=== PATIENT | male | born 1980 | race Caucasian/White ===

== ENCOUNTER 2017-08-28 20:18 | Emergency (ER) | payer MEDICAID ==
[~2017-08-28] VITALS: Ht 185.4 cm; Wt 77.1 kg
[~2017-08-28 20:18] MED LIST: AMBIEN 10MG TAB10 MG PO; BACTRIM DS 8001 TAB PO; CLONIDINE0.1 MG PO; DICLOFENAC 50MG50 MG PO; DIPHENHYDRAMINE25 M1 PO; EFFEXOR XR150 MG PO; FLEXERIL10 MG PO; GABAPENTIN 600600 MG PO; LORTAB 5/500 501 TAB PO; NAPROSYN 500MG500 MG PO; NEXIUM40 MG PO; NORCO 325 MG-51 TAB PO; PREDNISONE 1MG.1 MG PO; PREDNISONE 20MG20 MG PO; PRILOSEC40 MG PO; PROPRANOLOL HCL20 MG PO; PROPRANOLOL HCL80 M1 PO; SEROQUEL50 MG PO; TRAMADOL 50MG T50 MG PO; XANAX 1MG TABLET1 MG PO
[2017-08-28] MEDS ORDERED: NOMEDS XX (20:28)
--- NOTE | 2017-08-28 20:53 | Emergency Room Report ---
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 Onset of symptoms date/time:08/27/1711/01/500 or onset unknown for: Treatment Prior to Arrival: [employer] Provided by: Sepsis Risk Assessment: Temp: 98.4 B/P: 130/98 MAP: 108 Pulse: 99 Resp: 20 Recent fever? N Clinical Suspician of Infection? N Mental Status: 1 - Regular (Normal Baseline) Sepsis Risk:Possible Sepsis Risk Have you (or family members/close friends) recently traveled outside the [place]? N If Yes, where/when: Have you had exposure to infectious disease within the past month? N TB? Other? Specify: Source patient, RN notes reviewed, old records Exam Limitations no limitations Comment pt reports trip injury and hit lt side of head yesterday am without loc and worked and today has dec strenght lt upper ext and vilchis with reported drooping eyelid on lt which was noted by his - he denied any visual sx and no neck pain and no speech sx or other c/o- he reports he has migraines and denied etoh or drugs Cardiac Chest Pain Chest pain indicative of cardiac No Timing/Duration this evening Severity moderate ALLERGIES Coded Allergies: latex (Intermediate, I-HIVES 07/17/16) Home Medications Active Scripts Prednisone 60 MG PO DAILY #4 TAB Prov: 05/21/17 Reported Medications No Home Medications (NO HOME MEDICATIONS) 1 EACH XX ONCE History Medical History General Angina: No AR: No Hypertension? Yes Hyperlipidemia? No CHF? No COPD? No Asthma? No Hernia? No CVA? No Seizures? No Diabetes? No UTI? No Stones? No GB Disease: No Hepatitis? No Cataracts? No Glaucoma? No MRSA? No TB? No Cancer? No Immunization Hx DT/Tetanus 1-4 YRS Flu 2011-FSN Pneumonia 12/31/2012 Surgical Hx Previous Surgery?Y RT. KNEE RECONSTRUCTION Social History Smoking Hx Smoker: Current Every Day Smoker Tobacco: Yes Type Cigarettes Packs/day < 1 Pack Alcohol Alcohol: No Drugs none Review of Systems All Other Systems Reviewed and Negative Constitutional denies fever Eyes denies drainage ENT denies: ear discharge, epistaxis, throat pain. Respiratory denies cough, denies wheezing Cardiovascular denies chest pain, denies syncope Gastrointestinal denies abdominal pain, denies diarrhea, denies vomiting Genitourinary denies: dysuria, frequency, hesitancy, hematuria. Musculoskeletal denies back pain, denies joint pain, denies neck pain Skin denies rash Psychiatric/Neurological see HPI, headache, denies seizure Physical Exam Vital Signs Vital Signs Date Time Temp Pulse Resp B/P Pulse O2 O2 Flow FiO2 Ox Delivery Rate 08/28 2021 98.4 99 20 130/98 98 - WBC >12,000 or <4,000 or 10% bands? 2 or more SIRS Criteria Met? B/P:130/98 MAP:108 Creatinine >2.0? UA output<0.5ml/kg/hr for 2 hrs? Platelet count >100,000? Lactate >2.0mmol/1? INR >1.2 or PTT > than 60 sec? Evidence of Organ Dysfunction? Provider documented clinical suspician of infection? N Sepsis Criteria Count: 2 Sepsis Risk: Possible Sepsis Risk General Appearance no apparent distress Eye Exam - bilateral eye PERRL, bilateral eye EOMI Comment dropping lt upper lid but pupils ok Ear, Nose, Throat normal ENT inspection Neck non-tender, supple Respiratory Status No: respiratory distress. Lung Sounds bilateral: lungs clear. 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 No Results/Orders Orders Procedure Date/time Status DIET-NOTHING BY MOUTH 08/[address] HEAD W/O CONTRAST 08/[address] HEAD REQ 08/28 2031 Complete [id number]-3 VIEWS 08/28 2031 Active XRAY/CT/US XRAY/CT/US [address] interpretation by discussed w/radiologist Time results known: 2139 CT Results normal/NAD XRAY/CT/US 2 XRAY shoulder XR interpretation by reviewed by me Xray Results no fracture seen Departure Departure Time of Disposition 2114 Disposition Against Medical Advice Clinical Impression Primary Impression: Head injury due to trauma Qualifiers: Encounter type: initial encounter Qualified Code: S09.90XA - Unspecified injury of head, initial encounter Condition STABLE Patient Instructions DI for Closed Head Injury Additional Instructions see pcp or return to ed Discharge Counseling Counseled pt/family regarding diagnosis, follow up needs ED Critical Care Critical Care No Comments pleaded with pt to remain in ed but he refused and knew he may need [place] eval at [phone]
[2017-08-28 21:48] VITALS: BP 130/98
--- NOTE | 2017-08-29 07:15 | RADIOLOGY REPORT PS360 ---
[id number] VIEWS HISTORY: Pain following injury FALL ORDERING PHYSICIAN: Juan Jose Wolfe MD PATIENT AGE: 37 years COMPARISON: None FINDINGS: No fracture or dislocation. No lytic or blastic change. There is normal mineralization. The joint spaces are well-preserved. No significant degenerative/arthritic changes. No erosive changes evident. IMPRESSION: Negative, no acute finding
--- NOTE | 2017-08-29 08:37 | RADIOLOGY REPORT PS360 ---
CT HEAD W/O CONTRAST HISTORY: Headache, pain, concussion following injury, contusion/abrasion HEAD INJURY, FALL ORDERING PHYSICIAN: Juan Jose Wolfe MD PATIENT AGE: 37 years COMPARISON: 04/21/2011 TECHNIQUE: Axial images obtained without contrast. Brain and bone windows reviewed. FINDINGS: No midline shift, mass effect, intracranial hemorrhage, hydrocephalus, or extra-axial fluid collection is evident. The calvarium has an unremarkable appearance. No mastoid effusion. The visualized paranasal sinuses are unremarkable. IMPRESSION: Negative CT head without contrast. No acute finding.
--- OUTSIDE RECORDS SUMMARY | 2017-08-29 22:26 | External Medical Summary Rpt | CCD ---
Author Author , OBINNA YEBOAH Address Unknown Phone [email or web address] Care Team Providers Care Plant Facilities Technician Name Role Phone A Navi PONCE MD PSC, Sergey Unavailable Unavailable Navi PONCE MD [facility] ABDI Unavailable Unavailable [facility] Un[facility] Unavailable [facility], [facility] ADRIAN, Unavailable Unavailable [facility] ADRI[facility], Unavailable Unavailable [facility]IS ADRIAN [facility] Unavailable [place]available [place], [facility] [place] [facility] Unavailable Unavailable [facility] Unavailable Unavailable FRYMAN EUG, FRYMAN Unavailable Unavailable EUG CALEB RADHA, CALEB Unavailable Unavailable RADHA CALEB RADHA, CALEB Unavailable Unavailable RADHA CARVAJAL HAILEY, CARVAJAL HAILEY Unavailable Unavailable [facility] Unavailable Unavailable [facility] Unavailable Unavailable [facility] Un[facility] Un[facility], [facility] Unavailable Unavailable HOSPITAL, [facility], [facility]available Unavailable [facility] KONRAD DE LA FUENTE, KONRAD Unavailable Unavailable [facility] Unavailable Unavailable [facility], [facility] Unavailable Unavailable [facility], [facility] Unavailable Unavailable SERVICES, [facility] ALEIDA YULIA, ALEIDA YULIA Unavailable Unavailable ALEIDA YULIA, ALEIDA YULIA Unavailable Unavailable [facility] Unavailable Unavailable [id number] [address] [id number], [facility] [id number] [address] [id number] WEHRMAN III SUMA, Unavailable Unavailable WEHRMAN III SUMA WEHRMAN III SUMA, Unavailable Unavailable WEHRMAN III ROSARIO EDWARDS Unavailable Unavailable Purpose Continuity of Care Document - 09-11-2010 through 2016 Problems Code Diagnosis DOS Provider Status L259 UNSPECIFIED 05-21-2017 [facility] DER[facility] UNSPECIFIED CAUSE B182 CHRONIC 07-16-2016 [facility] R748 ABNORMAL 07-16-2016 [facility] LEVELS OF DIGESTIVE OTHER SERUM CARE CENTER ENZYMES R251 TREMOR 07-07-2016 [facility]PEC[facility] INC N63 UNSPECIFIED 06-24-2016 [place] [facility] N6489 OTHER 06-24-2016 [facility] SPECIFIED [facility] DISORDERS [facility] OF BREAST B1920 UNS VIRAL 06-22-2016 [facility]PAT[facility] WITHOUT INC HEPATIC COMA R1011 RIGHT UPPER 06-19-2016 [facility] Z0000 ENCOUNTER 06-11-2016 [facility] GEN [facility]ULT [facility] MED EXAM INC W/O ABNORMAL FIND R17 UNSPECIFIED 06-06-2016 [facility] R339 RETENTION 10-05-2015 [facility] L0291 CUTANEOUS 09-26-2015 [facility] ABSCESS [facility] UNSPECIFIED INC 66641 GENERALIZED 04-08-2014 [facility] PAIN ADRIAN 9599 INJURY 04-08-2014 [facility] OTHER AND ADRIAN UNSPECIFIED UNSPECIFIED SITE 24194 GENERALIZED 04-07-2014 ALEIDA YULIA ANXIETY DISORDER 68471 OTHER 04-07-2014 ALEIDA YULIA MALAISE AND FATIGUE 4659 ACUTE URIS 12-09-2013 ALEIDA YULIA OF UNSPECIFIED SITE 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 V5869 LONG-TERM 06-30-2013 A Navi PONCE (CURRENT) PSC USE OF OTHER MEDICATIONS V5883 ENCOUNTER 06-30-2013 A Navi PONCE FOR PSC THERAPEUTIC DRUG MONITORING 7080 ALLERGIC 01-02-2013 [facility] 7089 UNSPECIFIED 01-02-2013 CALEB RADHA URTICARIA 9953 ALLERGY 01-02-2013 CALEB RADHA UNSPECIFIED NOT ELSEWHERE CLASSIFIED 0088 INTESTINAL 12-31-2012 [facility] DUE TO INC OTHER ORGANISM NEC 5589 OTH&UNSPEC 12-30-2012 CALEB RADHA NONINFECTIO 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 ITIS&COLITI S 4011 ESSENTIAL 08-24-2012 AELIDA YULIA HYPERTENSIO N, BENIGN 16977 OTHER 05-10-2012 ALEIDA YULIA CLOSED FRACTURES OF DISTAL END OF RADIUS 27108 CLOSED 04-21-2012 [facility] CO[facility]ES [facility] FRACTURE INC 25970 CLOSED 04-21-2012 [facility] FRA[facility]URE OF MEDICAL LOWER END IMAGING ASS OF RADIUS WITH ULNA V674 TREATMENT 04-21-2012 [facility]RACTURE [facility]ING ASS FOLLOW-UP EXAMINATION 36177 SPRAIN AND 04-05-2012 ALEIDA YULIA STRAIN [place]IBIOFIBULA R 81008 PAIN IN 04-04-2012 [place] 35646 PAIN IN 04-04-2012 [place]LE [facility] IM[facility]ING [facility] FOOT 73239 SPRAIN AND 04-04-2012 WEHRMAN III STRAIN OF SUMA UNSPECIFIED SITE OF WRIST 44679 UNSPECIFIED 04-04-2012 WEHRMAN III SITE OF SUMA ANKLE SPRAIN AND STRAIN E8889 UNSPECIFIED 04-04-2012 [facility] 4019 UNSPECIFIED 02-25-2012 ALEIDA YULIA ESSENTIAL HYPERTENSIO N 64506 INSOMNIA 11-27-2011 ALEIDA YULIA UNSPECIFIED 72482 OTHER 07-24-2011 A Navi PONCE MONOMARVURINICOLE HIRSCH PSC S OF LOWER LIMB 74656 PAIN IN 07-24-2011 A Navi NORRIS MD PSC LOWER LEG 73926 LATERAL 07-24-2011 A Navi PONCE EPICONDYLIT PSC IS OF ELBOW 3320 PARALYSIS 04-21-2011 [facility] 3331 ESSENTIAL 04-21-2011 DEAN AND OTHER EMERGENCY SPECIFIED SERVICES FORMS OF TREM[place] 83456 CHEST PAIN 04-21-2011 [place]PECIFIED [facility]ICAL IM[facility]ING ASS 37633 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 TE 75 SE ti AZ 32 2- 7- 00 39 S ve OL 12 [address] AM 82 12 12 D EP 1 PH HE 0. AR N 5 MA A MG CY TA 03 BL 93 ET 8 # 03 93 NE 00 02 01 5 30 0 RI 87 MO Ac XI 18 -2 -0 0. TE 17 SE ti UM 65 1- 6- 00 19 S ve 04 [address] 03 11 12 D EP 1 PH HE 40 AR N MA A MG CY CA 03 PS 93 UL 8 E # 03 93 GA 68 03 01 0 12 0 RI 91 WR Ac BA 46 -1 -0 00 TE 44 IG ti PE 20 6- 5- .0 35 HT ve NT 12 20 20 00 AI IN 60 11 12 D AR 1 PH DY 60 AR C 0 MA MG CY TA 03 BL 93 ET 8 # 03 93 EF 00 12 01 1 30 0 RI 91 MO Ac FE 00 -0 -0 0. TE 57 SE ti XO 80 7- 5- 00 65 S ve R 83 [address] XR 32 11 12 D EP 1 PH HE 75 AR N MA A MG CY CA 03 PS 93 UL 8 E # 03 93 SE 00 12 01 1 30 0 RI 91 MO Ac RO 31 -0 -0 0. TE 57 SE ti QU 00 7- 5- 00 66 S ve EL 27 [address] 81 11 12 D EP 50 0 PH HE AR N MG MA A CY TA BL 03 ET 93 8 # 03 93 AL 00 01 01 0 60 0 RI 91 MO Ac RI 60 -0 -0 0. TE 57 SE ti AZ 32 3- 3- 00 41 S ve OL 12 [address] AM 92 12 12 D EP 1 8 PH HE AR N MG MA A CY TA BL 03 ET 93 8 # 03 93 NO 00 12 12 0 30 0 RI 91 MO Ac RT 09 -2 -2 0. TE 57 SE ti RI 30 9- 9- 00 43 S ve PT 81 [address] YL 20 11 11 D EP IN 1 PH HE E AR N HC MA A L CY 50 03 MG 93 8 CA # P 03 93 NE 00 12 10 5 30 30 RI 86 MO Ac XI 18 -3 -2 .0 TE 44 SE ti UM 65 0- 8- 00 28 S ve [address] 03 10 11 D EP 1 PH HE 40 AR N MA A MG CY CA 03 PS 93 UL 8 E # 03 93 RI 00 10 10 30 5 RI 90 MO Ac OM 60 -2 -2 .0 TE 43 SE ti ET 35 1- 1- 00 31 S ve MOLINA [address] ZI 82 11 11 D EP NE 1 PH HE AR N 25 MA A CY MG 03 TA 93 BL 8 ET # 03 93 GA 68 08 10 5 18 30 RI 89 MO Ac BA 46 -2 -1 0. TE 62 SE ti PE 20 3- 8- 00 13 S ve NT 12 [address] IN 60 11 11 D EP 1 PH HE 60 AR N 0 MA A MG CY TA 03 BL 93 ET 8 # 03 93 RI 00 09 10 2 30 7 RI 89 MO Ac OM 60 -0 -0 .0 TE 81 SE ti ET 35 8- 3- 00 64 S ve MOLINA [address] ZI 82 11 11 D EP NE 1 PH HE AR N 25 MA A CY MG 03 TA 93 BL 8 ET # 03 93 GA 68 08 09 5 18 30 RI 89 MO Ac BA 46 -2 -2 0. TE 62 SE ti PE 20 3- 0- 00 13 S ve NT 12 [address] IN 60 11 11 D EP 1 PH HE 60 AR N 0 MA A MG CY TA 03 BL 93 ET 8 # 03 93 RI 00 09 09 2 30 7 RI 89 MO Ac OM 60 -0 -1 .0 TE 81 SE ti ET 35 8- 6- 00 64 S ve MOLINA [address] ZI 82 11 11 D EP NE 1 PH HE AR N 25 MA A CY MG 03 TA 93 BL 8 ET # 03 93 RI 00 09 09 2 30 7 RI 89 MO Ac OM 60 -0 -0 .0 TE 81 SE ti ET 35 8- 8- 00 64 S ve MOLINA [address] ZI 82 11 11 D EP NE 1 PH HE AR N 25 MA A CY MG 03 TA 93 BL 8 ET # 03 93 NE 00 12 08 5 30 30 RI 86 MO Ac XI 18 -3 -2 .0 TE 44 SE ti UM 65 0- 9- 00 28 S ve [address] 03 10 11 D EP 1 PH HE 40 AR N MA A MG CY CA 03 PS 93 UL 8 E # 03 93 GA 68 08 08 5 18 30 RI 89 MO Ac BA 46 -2 -2 0. TE 62 SE ti PE 20 3- 3- 00 13 S ve NT 12 [address] IN 60 11 11 D EP 1 PH HE 60 AR N 0 MA A MG CY TA 03 BL 93 ET 8 # 03 93 GA 53 06 07 2 36 30 RI 88 MO Ac BA 74 -0 -2 0. TE 56 SE ti PE 60 2- 7- 00 83 S ve NT 10 [address] IN 20 11 11 D EP 1 PH HE 30 AR N 0 MA A MG CY CA 03 PS 93 UL 8 E # 03 93 GA 53 06 06 2 36 30 RI 88 MO Ac BA 74 -0 -2 0. TE 56 SE ti PE 60 2- 9- 00 83 S ve NT 10 [address] IN 20 11 11 D EP 1 PH HE 30 AR N 0 MA A MG CY CA 03 PS 93 UL 8 E # 03 93 NE 00 12 06 5 30 30 RI 86 MO Ac XI 18 -3 -2 .0 TE 44 SE ti UM 65 0- 8- 00 28 S ve 04 [address] 03 10 11 D EP 1 PH HE 40 AR N MA A MG CY CA 03 PS 93 UL 8 E # 03 93 MA 51 06 06 59 1 RI 88 MO Ac LA 67 -2 -2 .0 TE 88 SE ti TH 25 6- 6- 00 09 S ve IO [address] N 70 11 11 D EP 0. 4 PH HE 5% AR N MA A LO CY TI ON 03 93 8 # 03 93 FL 16 06 06 1 30 30 EA 22 MO Ac UO 71 -0 -[address] 84 SE ti XE 40 7- 7- 00 SI 68 S ve TI [address] NE 10 11 11 EP 3 PH HE HC AR N L MA A 10 CY MG OF CA CY PS NT UL HI E AN A BU 00 06 06 1 60 30 EA 22 MO Ac SP 59 -0 -[address] 84 SE ti IR 10 7- 7- 00 SI 66 S ve ON [address] E 80 11 11 EP HC 1 PH HE L AR N 10 MA A CY MG OF TA BL CY ET NT HI AN A ZO 00 06 06 6. 6 RI 88 GR Ac LP 09 -0 -0 00 TE 63 AY ti ID 30 6- 6- 0 22 ve EM 07 20 20 AI RO 40 11 11 D BE TA 1 PH RT RT AR B RA MA TE CY 10 03 93 MG 8 # TA 03 BL 93 ET CL 53 06 06 30 15 RI 88 GR Ac ON 48 -0 -0 .0 TE 63 AY ti ID 90 6- 6- 00 23 ve IN 21 20 20 AI RO E 51 11 11 D BE HC 0 PH RT L AR B 0. MA 1 CY MG 03 TA 93 BL 8 ET # 03 93 GA 53 06 06 2 36 30 RI 88 MO Ac BA 74 -0 -0 0. TE 56 SE ti PE 60 2- 2- 00 83 S ve NT 10 [address] IN 20 11 11 D EP 1 PH HE 30 AR N 0 MA A MG CY CA 03 PS 93 UL 8 E # 03 93 00 05 05 0 30 5 EA 22 MO Ac 59 -1 -[address] 60 SE ti 10 9- 9- 00 SI 45 S ve [address] 00 11 11 EP 1 PH HE AR N MA A CY OF CY NT HI AN A RI 16 05 05 0 60 30 EA 22 MO Ac OP 71 -1 -[address] 60 SE ti RA 40 9- 9- 00 SI 46 S ve NO [address] LO 20 11 11 EP L 4 PH HE 20 AR N MA A MG CY TA OF BL ET CY NT HI AN A 00 05 05 0 15 4 EA 22 WE Ac 59 -1 -[address] 57 HR ti 10 8- 8- 00 SI 92 MA ve 34 20 20 DE N 90 11 11 II 1 PH I AR WI MA LL CY IA M OF E CY NT HI AN A GA 68 03 05 5 60 30 RI 87 MO Ac BA 46 -1 -1 .0 TE 50 SE ti PE 20 5- 2- 00 71 S ve NT [address] IN 60 11 11 D EP 1 PH HE 60 AR N 0 MA A MG CY TA 03 BL 93 ET 8 # 03 93 NE 00 02 05 5 30 30 RI 87 MO Ac XI 18 -2 -0 .0 TE 17 SE ti UM 65 1- 8- 00 19 S ve [address] 03 11 11 D EP 1 PH HE 40 AR N MA A MG CY CA 03 PS 93 UL 8 E # 03 93 HY 00 03 04 1 30 30 RI [address] 18 -1 -1 .0 TE 53 SE ti OX 50 5- 3- 00 41 S ve YZ [address] IN 50 11 11 D EP E 1 PH HE PA AR N M MA A 50 CY MG 03 93 CA 8 P # 03 93 GA 00 03 04 5 60 30 RI 87 MO Ac BA 09 -1 -1 .0 TE 50 SE ti PE 34 5- 2- 00 71 S ve NT [address] IN 30 11 11 D EP 1 PH HE 60 AR N 0 MA A MG CY TA 03 BL 93 ET 8 # 03 93 HY 00 03 03 1 30 30 RI [address] 18 -1 -1 .0 TE 53 SE ti OX 50 5- 5- 00 41 S ve YZ [address] IN 50 11 11 D EP E 1 PH HE PA AR N M MA A 50 CY MG 03 93 CA 8 P # 03 93 GA 00 03 03 5 60 30 RI 87 MO Ac BA 09 -1 -1 .0 TE 50 SE ti PE 34 5- 5- 00 71 S ve NT [address] IN 30 11 11 D EP 1 PH HE 60 AR N 0 MA A MG CY TA 03 BL 93 ET 8 # 03 93 GA 53 03 03 1 60 30 RI 87 RI Ac BA 74 -1 -1 .0 TE 46 SH ti PE 60 1- 1- 00 53 ER ve NT 10 20 20 AI IN 20 11 11 D RI 1 PH CH 30 AR AR 0 MA D MG CY CA 03 PS 93 UL 8 E # 03 93 TR 00 02 02 90 30 RI 87 MOLINA Ac AM 09 -2 -2 .0 TE 23 RR ti AD 30 5- 5- 00 03 IE ve OL 05 20 20 AI S 80 11 11 D DA HC 1 PH L AR D 50 MA P CY MG 03 TA 93 BL 8 ET # 03 93 GA 53 02 02 10 32 RI 87 MO Ac BA 74 -2 -2 0. TE 17 SE ti PE 60 2- 2- 00 18 S ve NT 10 [address] IN 10 11 11 D EP 1 PH HE 10 AR N 0 MA A MG CY CA 03 PS 93 UL 8 E # 03 93 NE 00 02 02 5 30 30 RI 87 MO Ac XI 18 -2 -2 .0 TE 17 SE ti UM 65 1- 2- 00 19 S ve [address] 03 11 11 D EP 1 PH HE 40 AR N MA A MG CY CA 03 PS 93 UL 8 E # 03 93 NE 00 11 01 2 30 30 RI 85 MO Ac XI 18 -1 -1 .0 TE 82 SE ti UM 65 5- 4- 00 13 S ve 04 [address] 03 10 11 D EP 1 PH HE 40 AR N MA A MG CY CA 03 PS 93 UL 8 E # 03 93 DI 00 12 12 60 30 RI 86 MO Ac CL 78 -3 -3 .0 TE 44 SE ti OF 11 0- 0- 00 25 S ve EN [address] AC 90 10 10 D EP 1 PH HE SO AR N D MA A EC CY 75 03 93 MG 8 # TA 03 B 93 ME 65 11 12 1 60 30 RI 85 MO Ac LO 86 -1 -1 .0 TE 82 SE ti XI 20 5- 5- 00 11 S ve CA [address] M 70 10 10 D EP 7. 1 PH HE 5 AR N MG MA A CY TA BL 03 ET 93 8 # 03 93 NE 00 11 12 2 30 30 RI 85 MO Ac XI 18 -1 -1 .0 TE 82 SE ti UM 65 5- 5- 00 13 S ve [address] 03 10 10 D EP 1 PH HE 40 AR N MA A MG CY CA 03 PS 93 UL 8 E # 03 93 ME 65 11 11 1 60 30 RI 85 MO Ac LO 86 -1 -1 .0 TE 82 SE ti XI 20 5- 5- 00 11 S ve CA [address] M 70 10 10 D EP 7. 1 PH HE 5 AR N MG MA A CY TA BL 03 ET 93 8 # 03 93 NE 00 11 11 2 30 30 RI 85 MO Ac XI 18 -1 -1 .0 TE 82 SE ti UM 65 5- 5- 00 13 S ve [address] 03 10 10 D EP 1 PH HE 40 AR N MA A MG CY CA 03 PS 93 UL 8 E # 03 93 Immunization Name Date Rout CVX Reac Dose Comm Prov Is Faci e tion ent ider Refu lity Give sed n PPSV 02-1 33 SARI No SARI 23 5-20 [facility] ROSENDO VACC 13 [facility] 2 [facility] HOSP YRS INC INC OR OLDE R FOR SUBQ /IM USE IIV3 02-1 141 SARI No SARI 5-20 ROSEND[facility] ROSENDO VACC 13 [facility] SPLI HOSP HOSP T INC INC VIRU S 0.5 ML DOSA GE IM USE Procedures Procedure DOS Code Location Performer Comment COLLECTIO 75424 [facility] VENOUS [facility] [place] [address] [facility] FREE [facility] [place] [address] [facility] THYROID [facility] STIMULATI INC INC NG HORMONE TSH US BREAST 29197 [facility] UNI REAL 6 [facility] TIME INC INC WITH IMAGE COMPLETE US BREAST 44128 DAV ABDI UNI REAL 6 MEDICAL TIME IMAGING WITH ASS IMAGE LIMITED DIAGNOSTI G0204 [facility] C [facility] MAMMOGRAP INC INC HY INCL [place]; [place] [address] [facility]FUSION [facility] THERAPY/P INC INC ROPHYLAXI S /DX 1ST TO 1 [place] [address] [facility]ION [facility] THERAPY/P INC INC ROPHYLAXI S /DX 1ST TO 1 HR BLOOD 95433 [facility] COUNT 6 [facility] COMPLETE INC INC AUTO&AUTO DIFRNTL WBC CULTURE 29128 [facility] BACTERIAL 6 [facility] INC INC QUANTTATI VE COLONY COUNT URINE HEPATITIS 44445 [facility] C 6 [facility] [place] [address] [facility] ABDOMINAL 6 [facility] REAL INC INC TIME W/IMAGE LIMITED PROTHROMB 69153 [facility] IN TIME 6 [facility] INC INC HEPATITIS 06510 [facility] CORE 6 [facility] ANTIBODY INC INC HBCAB TOTAL HEPATITIS 70253 [facility] SURF 6 [facility] [address] [facility] HEPATITIS 6 [facility] B INC INC SURFACE ANTIGEN DRUG TST G0477 [facility] PRESUMP;C 6 [facility] PBL BEING INC INC READ DC OPT OBV ONLY DRUG TEST G0480 [facility] DEFINITV [address] [address] ID INC INC METH P DAY 1-7 DRUG CL COLLECTIO 59713 [facility] N VENOUS 6 [facility] BLOOD INC INC VENIPUNCT URE URNLS DIP 53915 [facility] 6 [facility] STICK/TAB INC INC LET REAGENT AUTO MICROSCOP Y HEMOGLOBI 80555 [facility] N 6 [facility] GLYCOSYLA INC INC KOBI A1C COMPREHEN 86434 [facility] SIVE 6 [facility] METABOLIC INC INC PANEL HEPATITIS 44496 [facility] GENTILEON A 6 [facility] ANTIBODY INC INC HAAB URNLS DIP 86049 [facility] TAYLORYMAN 5 [facility] STICK/TAB HOSPITAL LET RGNT NON-AUTO W/O MICRSCP CULTURE 63408 [facility] BACTERIAL 5 [facility] INC INC QUANTTATI VE COLONY COUNT URINE CUL BACT 84524 [facility] XCPT 5 [facility] URINE INC INC BLOOD/STO OL AEROBIC ISOL CUL BACT 07848 [facility] AEROBIC 5 [facility] ADDL INC INC METHS DEFINITIV E EA ISOL SUSCEPTIB 07034 [facility] LTY STDY 5 [facility] ANTIMICRB INC INC IAL MICRO/AGA R DILUTJ RADIOLOGI 08786 [facility] NORIS C 4 ADRIAN ADRIAN EXAMINATI ON FOOT 2 VIEWS RADIOLOGI 71110 [facility] NORIS C 4 ADRIAN ADRIAN EXAMINATI ON ANKLE 2 VIEWS DRUG SCR G0434 Sergey C ALEIDA YULIA NOT 3 ROSARIO HIRSCH CHROMATOG PSC RAPHIC; ANY NUMBER PT ENC THERAPEUT 14667 [facility] IC 3 [facility] PROPHYLAC INC INC TIC/DX INJECTION SUBQ/IM BLOOD 82812 [facility] COUNT 3 [facility] COMPLETE INC INC AUTO&[place] [address] [facility] LIPASE [address] [place] [address] [facility] ABDOMEN & 3 [facility] PELVIS INC INC W/O CONTRAST MATERIAL IIV3 87835 [facility] VACCINE 3 [facility] SPLIT INC INC VIRUS 0.5 ML DOSAGE IM USE PPSV23 92445 [facility] VACCINE 2 3 [facility] YRS OR INC INC OLDER FOR SUBQ/[place] [address] [facility] INFUSION 3 [facility] THERAPY/P INC INC ROPHYLAXI S /DX 1ST TO 1 [place] [address] [facility] AMYLASE 3 [facility] INC INC URNLS DIP 01852 [facility] 3 [facility] STICK/TAB INC INC LET REAGENT AUTO MICROSCOP Y COMPREHEN 92015 [facility] SIVE 3 [facility] METABOLIC INC INC PANEL HOSPITAL G0378 [facility] OBSERVATI 3 [facility] ON INC INC SERVICE PER HOUR THERAPEUT 93341 [facility] IC 3 [facility] INJECTION INC INC IV PUSH EACH NEW DRUG RADEX 27092 [facility] WRIST 2 [facility] COMPLETE INC INC MINIMUM 3 VIEWS APPLICATI 40226 ALEIDA YULIA ALEIDA YULIA ON CAST 2 ELBOW FINGER SHORT ARM APPLICATI 15182 ALEIDA BENDER ALEIDA YULIA ON SHORT 2 ARM SPLINT FOREARM-H AND STATIC APPLICATI 14125 [facility] ON SHORT 2 [facility] ARM INC INC SPLINT FOREARM-H AND STATIC RADEX 88368 [facility] ANKLE 2 [facility] COMPLETE INC INC MINIMUM 3 VIEWS RADEX 21167 [facility] FOOT 2 [facility] COMPLETE INC INC MINIMUM 3 VIEWS APPLICATI 56242 [facility] ON SHORT 2 [facility] LEG INC INC SPLINT CALF FOOT RADEX 78049 [facility] FOREARM 2 2 [facility] VIEWS INC INC RADEX 53835 [facility] WRIST 2 [facility] COMPLETE INC INC MINIMUM 3 VIEWS CREATINE 50103 [facility] KINASE 1 [facility] TOTAL INC INC ECG 20765 [facility] ROUTINE 1 [facility] ECG INC INC W/LEAST 12 LDS TRCG ONLY W/O I&R BLOOD 97795 [facility] COUNT 1 [facility] COMPLETE INC INC AUTO&[place] [address] [facility] INFUSION 1 [facility] THERAPY/P INC INC ROPHYLAXI S /DX 1ST TO 1 HR ECG 56810 DEAN HART ROUTINE 1 EMERGENCY ECG SERVICES W/LEAST 12 LDS I&[place] [address] [facility] THYROID 1 [facility] STIMULATI [place] [address] [facility] THYROXINE 1 [facility] [place] [address] [facility] INFUSION 1 [facility] THERAPY INC INC PROPHYLAX IS/DX EA HOUR CREATINE 64026 [facility] KINASE MB 1 [facility] [place] [address] DAV HAMM HEAD/BRAI 1 MEDICAL ADRIAN N W/O IMAGING CONTRAST ASS MATERIAL BASIC 29592 [facility] METABOLIC 1 [facility] PANEL INC INC CALCIUM TOTAL THYROID 33583 [facility] HORM 1 [facility] UPTK/THYR INC [place] [address] [facility] TROPONIN 1 [facility] QUANTITAT INC INC BRENDA RADIOLOGI 30804 [facility] HAMM C EXAM 1 [facility] CHEST 2 IMAGING VIEWS ASS FRONTAL&L ATERAL 3D 29170 DAV KULKARNICHER RENDERING 1 [facility] W/INTERP IMAGING & ASS POSTPROCE SS SUPERVISI ON CRTCHS [id number] [facility] UNDARM 1 OTH THAN WOOD PAIR PAD TIP&HNDGR IP ANKLE [id number] [facility] CONTROL 1 ORTHOSIS STIRRUP STYL RIGID PREFAB RADEX 79057 [facility] ANKLE 1 [facility] COMPLETE IMAGING MINIMUM 3 ASS VIEWS RADEX 83529 [facility] FOOT 1 [facility] COMPLETE IMAGING MINIMUM 3 ASS VIEWS RHYTHM 91436 [facility] ECG 1-3 1 [facility] LEADS INC INC TRACING ONLY W/O I&R MRI 71720 FIDELINA C NORIS SPINAL 0 [facility] CANAL LUMBAR W/O CONTRAST MATERIAL 3D 60341 FIDELINA Mcelroy [facility] RENDERING 0 [facility] W/INTERP & POSTPROCE SS SUPERVISI ON RADEX 41394 [facility] SPINE 0 [facility] LUMBOSACR INC INC AL MINIMUM 4 VIEWS HEPATIC 89128 [facility] FUNCTION 0 [employer] [place] [address] [facility] FREE 0 [facility] THYROXINE [facility]ING HOLDING BLOOD 72668 [facility] COUNT 0 [facility] COMPLETE [facility]ING HOLDING AUTO&AUTO DIFRNTL WBC Encounters Encounter Start End Date Code Location Performer Type Date [facility] - 7 7 [facility] OUTPATI[facility] T EMERGENCY 92346 [facility] 7 7 [facility] INC T VISIT LOW/MODER SEVERITY OFFICE 38436 STEVO SILVESTRE OUTPATIEN 6 6 [facility] T [address] [facility] - 6 6 [facility] - 6 6 [facility]PATIEN [facility] - 6 6 [facility]PATIEN [facility] - 6 6 [facility] OUTPATIEN INC T OFFICE 86812 [facility] COLTON OUTPATIEN 6 6 PHYSICIAN EUG T VISIT S GROUP 15 MINUTES [facility] - 6 6 [facility] OUTPATIEN INC T OFFICE 61981 [facility] CALEB OUTPATIEN 6 6 PHYSICIAN RADHA T VISIT S GROUP 15 MINUTES [facility] - 5 5 [facility] OUTPATIEN INC T OFFICE 33773 [facility] SE[facility]A OUTPATIEN 5 5 [facility] T VISIT HOSPITAL 15 MINUTES [facility] - 5 5 [facility] OUTPATIEN INC T OFFICE 94338 [facility] OUTPATIEN 4 4 T VISIT 15 MINUTES OFFICE 32800 [facility] OUTPATIEN 4 4 T VISIT 15 MINUTES OFFICE 42179 [facility]UL[facility] OUTPATIEN 3 3 T VISIT 15 MINUTES OFFICE [id number] Sergey Mcelroy ALEIDA BENDER OUTPATIEN 3 3 ROSARIO HIRSCH T VISIT PSC 25 MINUTES OFFICE 72903 ALEIDA VANG YULIA OUTPATIEN 3 3 T VISIT 15 MINUTES EMERGENCY 78834 CALEB ELLIS 3 3 RADHA RADHA DEPARTMEN T VISIT MODERATE SEVERITY [facility]OS[facility] T EMERGENCY 82704 [facility] 3 3 [facility] DEPARTMEN INC T VISIT LOW/MODER SEVERITY [facility] T EMERGENCY 06657 [facility] DEPT 3 3 [facility] VISIT INC HIGH SEVERITY& THREAT FUNCJ EMERGENCY 56423 CALEB ELLIS DEPT 3 3 RADHA RADHA VISIT HIGH SEVERITY& THREAT FUNCJ OFFICE 11078 ALEIDA VANG YULIA OUTPATIEN 2 2 T VISIT 15 MINUTES OFFICE 16717 ALEIDA VANG YULIA OUTPATIEN 2 2 T VISIT 15 MINUTES HOSP[facility] T OFFICE 92165 ALEIDA VANG YULIA OUTPATIEN 2 2 T VISIT 15 MINUTES OFFICE 44797 ALEIDA VANG YULIA OUTPATIEN 2 2 T VISIT 15 MINUTES HOSP[facility] T EMERGENCY 16390 [facility] 2 2 [facility] DEPARTMEN INC T VISIT LOW/MODER SEVERITY EMERGENCY 86375 EDWARD LEON 2 2 III SUMA III [facility] T VISIT HIGH/URGE NT SEVERITY OFFICE 64556 ALEIDA VINSONES YULIA OUTPATIEN 2 2 T VISIT 15 MINUTES OFFICE 29820 ALEIDAALFREDO VANG YULIA OUTPATIEN 2 2 T VISIT 15 MINUTES OFFICE 22910 A Navi BENDER OUTPATIEN 1 1 ROSARIO HIRSCH T VISIT PSC 15 MINUTES OFFICE 35213 A Navi PONCE A OUTPATIEN 1 1 ROSARIO HIRSCH T VISIT PSC 15 MINUTES EMERGENCY 02456 [facility] [address] [facility] T VISIT HIGH/URGE NT SEVERITY [facility]OSPITAL [facility] - 1 1 [facility] T EMERGENCY 43455 DEAN HART DEPT 1 1 EMERGENCY VISIT SERVICES HIGH SEVERITY& THREAT FUNCJ OFFICE 62450 A Navi PONCE A OUTPATIEN 1 1 ROSARIO HIRSCH T VISIT PSC 15 MINUTES EMERGENCY 91621 DEAN LEON 1 1 EMERGENCY III [facility] T VISIT HIGH/URGE NT SEVERITY [facility]OSPITAL [facility] 1 1 [facility] T EMERGENCY 52404 [facility] [address] [facility] T VISIT LOW/MODER SEVERITY OFFICE 63307 A Navi PONCE A OUTPATIEN 1 1 ROSARIO HIRSCH T VISIT PSC 15 MINUTES OFFICE 66158 MORIS USBRAMANIAN OUTPATIEN 1 1 MAIN QUACH T NEW 45 MINUTES OFFICE 02626 A Navi PONCE A OUTPATIEN 1 1 ROSARIO HIRSCH T VISIT PSC 15 MINUTES OFFICE 09423 A Navi PONCE A OUTPATIEN 0 0 ROSARIO HIRSCH T VISIT PSC 15 MINUTES [facility]OSPITAL [facility] 0 0 [facility] OFF[facility] 65850 Sergey Rincon OUTPATIEN 0 0 ROSARIO HIRSCH T [address]
--- OUTSIDE RECORDS SUMMARY | 2017-08-29 22:26 | External Medical Summary Rpt | CCD ---
Author Author , OBINNA YEBOAH Address Unknown Phone [email or web address] Care Team Providers Care Front Attendant Name Role Phone A Navi PONCE MD PSC, Sergey Unavailable Unavailable Navi PONCE MD [facility] ABDI Unavailable Unavailable [facility], [facility] NORIS ADRIAN, Unavailable Unavailable NORIS ADRIAN NORIS ADRIAN, Unavailable Unavailable NORIS ADRIAN [facility] Unavailable Unavailable [place], [facility] [place] [facility] Unavailable Unavailable [facility] Unavailable Unavailable FRYMAN EUG, FRYMAN Unavailable Unavailable EUG CALEB RADHA, CALEB Unavailable Unavailable RADHA CALEB RADHA, CALEB Unavailable Unavailable RADHA CARVAJAL HAILEY, CARVAJAL HAILEY Unavailable Unavailable [facility], [facility] Unavailable Unavailable [facility] Unavailable Unavailable [facility], [facility] Unavailable [facility]available [facility], [facility], Unavailable Unavailable [facility] KONRAD DE LA FUENTE, KONRAD Unavailable Unavailable [facility], [facility] Unavailable Unavailable [facility], [facility] Unavailable Unavailable [facility], [facility] Unavailable Unavailable SERVICES, [facility] ALEIDA YULIA, ALEIDA YULIA Unavailable Unavailable ALEIDA YULIA, ALEIDA YULIA Unavailable Unavailable [facility] Unavailable Unavailable [id number] [address] [id number], [facility] [id number] # [id number] WEHRMAN III SUMA, Unavailable Unavailable [...] [facility] N6489 OTHER 06-24-2016 [facility] DISORDERS [facility] OF BREAST B1920 UNS VIRAL 06-22-2016 [facility] HEPAT[facility]IS C [facility] WITHOUT INC HEPATIC COMA R1011 RIGHT UPPER 06-19-2016 [facility] Z0000 ENCOUNTER 06-11-2016 [facility] GEN ADULT [facility] MED EXAM INC W/O ABNORMAL FIND R17 UNSPECIFIED 06-06-2016 [facility] PH[facility] GROUP R339 RETENTION 10-05-2015 [facility] L0291 CUTANEOUS 09-26-2015 [facility] ABSCESS [facility] UNSPECIFIED INC 76774 GENERALIZED 04-08-2014 NORIS PAIN ADRIAN 9599 INJURY 04-08-2014 NORIS OTHER AND ADRIAN UNSPECIFIED UNSPECIFIED SITE 43926 GENERALIZED 04-07-2014 ALEIDA YULIA ANXIETY DISORDER 01605 OTHER 04-07-2014 ALEIDA YULIA MALAISE AND FATIGUE [...] 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 ITIS&COLITI S 4011 ESSENTIAL 08-24-2012 ALEIDA YULIA HYPERTENSIO N, BENIGN 22160 OTHER 05-10-2012 ALEIDA YULIA CLOSED FRACTURES OF DISTAL END OF RADIUS 89912 CLOSED 04-21-2012 [facility] COLLES [facility] FRACTURE INC 01289 CLOSED 04-21-2012 [facility] F[facility]ICAL LOWER END IMAGING ASS OF RADIUS WITH ULNA V674 TREATMENT 04-21-2012 [facility]RA[facility]URE [facility] FOLLOW-UP EXAMINATION 14350 SPRAIN AND 04-05-2012 ALEIDA YULIA STRAIN OF TIBIOFIBULA R 15359 PAIN IN 04-04-2012 [facility] FOREARM IM[facility] 59348 PAIN IN 04-04-2012 [facility] ANKLE AND IMAGING ASS FOOT 13963 SPRAIN AND 04-04-2012 WEHRMAN III STRAIN OF SUMA UNSPECIFIED SITE OF WRIST 63124 UNSPECIFIED 04-04-2012 WEHRMAN III SITE OF SUMA ANKLE SPRAIN AND STRAIN E8889 UNSPECIFIED 04-04-2012 [facility] 4019 UNSPECIFIED 02-25-2012 ALEIDA YULIA ESSENTIAL HYPERTENSIO N 94972 INSOMNIA 11-27-2011 ALEIDA YULIA UNSPECIFIED 98981 OTHER 07-24-2011 A Navi PONCE MONOMARVURINICOLE HIRSCH PSC S OF LOWER LIMB 92719 PAIN IN 07-24-2011 A Navi NORRIS MD PSC LOWER LEG 01102 LATERAL 07-24-2011 A Navi PONCE EPICONDYLIT PSC IS OF ELBOW 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 TE 75 SE [...] 0 60 0 RI 91 MO Ac IL 60 -0 -0 0. TE 57 SE [...] 93 UL 8 E # 03 93 IL 00 10 10 30 5 RI 90 [...] BL 93 ET 8 # 03 93 IL 00 09 10 2 30 7 RI [...] BL 93 ET 8 # 03 93 IL 00 09 09 2 30 7 RI 89 MO Ac OM 60 -0 -1 .0 TE 81 SE ti ET 35 8- 6- 00 64 S ve MOLINA [address] ZI 82 11 11 D EP NE 1 PH HE AR N 25 MA A CY MG 03 TA 93 BL 8 ET # 03 93 IL 00 09 09 2 30 7 RI [...] CY OF CY NT HI AN A IL 16 05 05 0 60 30 EA [...] Procedure DOS Code Location Performer Comment COLLECTIO 46577 [facility] N VENOUS 6 [facility] [place] [address] [facility] FREE 6 [facility] [place] [address] [facility] THYROID 6 [facility] STIMULATI INC INC NG HORMONE TSH US BREAST 72340 [facility] UNI REAL 6 [facility] TIME INC INC WITH IMAGE COMPLETE US BREAST 47078 DAV ABDI UNI REAL 6 MEDICAL TIME IMAGING WITH ASS IMAGE LIMITED DIAGNOSTI G0204 [facility] C 6 [facility] MAMMOGRAP INC INC HY INCL CAD WHEN PER[place]; [place] [address] [facility] INFUSION 6 [facility] THERAPY/P INC INC ROPHYLAXI S /DX 1ST TO 1 [place] [address] [facility] INFUSION 6 [facility] THERAPY/P INC INC ROPHYLAXI S /DX 1ST TO 1 HR BLOOD 08483 [facility] COUNT 6 [facility] COMPLETE INC INC AUTO&AUTO DIFRNTL WBC CULTURE 73346 [facility] BACTERIAL 6 [facility] INC INC QUANTTATI VE COLONY COUNT URINE HEPATITIS 10796 [facility] C 6 [facility] [place] [place] [address] [facility] ABDOMINAL 6 [facility] REAL INC INC TIME W/IMAGE LIMITED PROTHROMB 64557 [facility] IN TIME 6 [facility] INC INC HEPATITIS 75947 [facility] Fair CORE 6 [facility] ANTIBODY INC INC HBCAB TOTAL HEPATITIS 79935 [facility] Fair SURF 6 [facility] [place] [address] [facility] HEPATITIS 6 [facility] B INC INC SURFACE ANTIGEN DRUG TST G0477 [facility] PRESUMP;C 6 [facility] PBL BEING INC INC READ DC OPT OBV ONLY DRUG TEST G0480 [facility] DEFINITV [address] ID INC INC METH P DAY 1-7 DRUG CL COLLECTIO 88960 [facility] N VENOUS 6 [facility] BLOOD INC INC VENIPUNCT URE URNLS DIP 15022 [facility] 6 [facility] STICK/TAB INC INC LET REAGENT AUTO MICROSCOP Y HEMOGLOBI 26237 [facility] N 6 [facility] GLYCOSYLA INC INC KOBI A1C COMPREHEN 11057 [facility] SIVE 6 [facility] METABOLIC INC INC PANEL HEPATITIS 01421 [facility] GENTILEON A 6 [facility] ANTIBODY INC INC HAAB URNLS DIP 43148 [facility] TAYLORYMAN 5 [facility] STICK/TAB HOSPITAL LET RGNT NON-AUTO W/O MICRSCP CULTURE 36726 [facility] BACTERIAL 5 [facility] INC INC QUANTTATI VE COLONY COUNT URINE CUL BACT 08283 [facility] XCPT 5 [facility] URINE INC INC BLOOD/STO OL AEROBIC ISOL CUL BACT 72611 [facility] AEROBIC 5 [facility] ADDL INC INC METHS DEFINITIV E EA ISOL SUSCEPTIB 40078 [facility] LTY STDY 5 [facility] ANTIMICRB INC INC IAL MICRO/AGA R DILUTJ RADIOLOGI 92082 NORIS NORIS C 4 ADRIAN ADRIAN EXAMINATI ON FOOT 2 VIEWS RADIOLOGI 42378 NORIS NORIS C 4 ADRIAN ADRIAN EXAMINATI ON ANKLE 2 VIEWS DRUG SCR G0434 Sergey C ALEIDA YULIA NOT 3 ROSAIRO HIRSCH CHROMATOG PSC RAPHIC; ANY NUMBER PT ENC THERAPEUT 54977 [facility] IC 3 [facility] PROPHYLAC INC INC TIC/DX INJECTION SUBQ/IM BLOOD 90894 [facility] COUNT 3 [facility] COMPLETE INC INC AUTO&[place] [address] [facility] LIPASE [facility] [place] [address] [facility] ABDOMEN & 3 [facility] PELVIS INC INC W/O CONTRAST MATERIAL IIV3 71394 [facility] VACCINE 3 [facility] SPLIT INC INC VIRUS 0.5 ML DOSAGE IM USE PPSV23 90703 [facility] VACCINE 2 3 [facility] YRS OR INC INC OLDER FOR SUBQ/[place] [address] [facility] INFUSION 3 [facility] THERAPY/P INC INC ROPHYLAXI S /DX 1ST TO 1 [place] [address] [facility] AMYLASE 3 [facility] INC INC URNLS DIP 52562 [facility] 3 [facility] STICK/TAB INC INC LET REAGENT AUTO MICROSCOP Y COMPREHEN 92190 [facility] SIVE 3 [facility] METABOLIC INC INC PANEL HOSPITAL G0378 [facility] OBSERVATI 3 [facility] ON INC INC SERVICE PER HOUR THERAPEUT 47836 [facility] IC 3 [facility] INJECTION INC INC IV PUSH EACH NEW DRUG RADEX 36474 [facility] WRIST 2 [facility] COMPLETE INC INC MINIMUM 3 VIEWS APPLICATI 21099 ALEIDA YULIA ALEIDA YULIA ON CAST 2 ELBOW FINGER SHORT ARM APPLICATI 33009 ALEIDA BENDER ALEIDA YULIA ON SHORT 2 ARM SPLINT FOREARM-H AND STATIC APPLICATI 39084 [facility] ON SHORT 2 [facility] ARM INC INC SPLINT FOREARM-H AND STATIC RADEX 38558 [facility] ANKLE 2 [facility] COMPLETE INC INC MINIMUM 3 VIEWS RADEX 16364 [facility] FOOT 2 [facility] COMPLETE INC INC MINIMUM 3 VIEWS APPLICATI 36332 [facility] ON SHORT 2 [facility] LEG INC INC SPLINT CALF FOOT RADEX 93363 [facility] FOREARM 2 2 [facility] VIEWS INC INC RADEX 95679 [facility] WRIST 2 [facility] COMPLETE INC INC MINIMUM 3 VIEWS CREATINE 16934 [facility] KINASE 1 [facility] TOTAL INC INC ECG 88509 [facility] ROUTINE 1 [facility] ECG INC INC W/LEAST 12 LDS TRCG ONLY W/O I&R BLOOD 79147 [facility] COUNT 1 [facility] COMPLETE INC INC AUTO&[place] [address] [facility] INFUSION 1 [facility] THERAPY/P INC INC ROPHYLAXI S /DX 1ST TO 1 HR ECG 24928 DEAN HART ROUTINE 1 EMERGENCY ECG SERVICES W/LEAST 12 LDS I&[place] [address] [facility] THYROID 1 [facility] STIMULATI [place] [address] [facility] THYROXINE 1 [facility] [place] [address] [facility] INFUSION 1 [facility] THERAPY INC INC PROPHYLAX IS/DX EA HOUR CREATINE 51409 [facility] KINASE MB 1 [facility] [place] [address] DAV HAMM HEAD/BRAI 1 MEDICAL ADRIAN N W/O IMAGING CONTRAST ASS MATERIAL BASIC 56860 [facility] METABOLIC 1 [facility] PANEL INC INC CALCIUM TOTAL THYROID 15858 [facility] HORM 1 [facility] UPTK/THYR INC [place] [address] [facility] TROPONIN 1 [facility] QUANTITAT INC INC BRENDA RADIOLOGI 89454 DAV HAMM C EXAM 1 MEDICAL ADRIAN CHEST 2 IMAGING VIEWS ASS FRONTAL&L ATERAL 3D 42193 DAV KULKARNICHER RENDERING 1 MEDICAL ADRIAN W/INTERP IMAGING & ASS POSTPROCE SS SUPERVISI ON CRTCHS E0114 [facility] UNDARM 1 OTH THAN WOOD PAIR PAD TIP&HNDGR IP ANKLE L4350 [facility] CONTROL 1 ORTHOSIS STIRRUP STYL RIGID PREFAB RADEX 56786 DAV NORIS ANKLE 1 MEDICAL ADRIAN COMPLETE IMAGING MINIMUM 3 ASS VIEWS RADEX 96881 DAV NORIS FOOT 1 MEDICAL ADRIAN COMPLETE IMAGING MINIMUM 3 ASS VIEWS RHYTHM 55454 [facility] ECG 1-3 1 [facility] LEADS INC INC TRACING ONLY W/O I&R MRI 23861 FIDELINA C NORIS SPINAL 0 NORIS ADRIAN CANAL LUMBAR W/O CONTRAST MATERIAL 3D 72547 FIDELINA Mcelroy NORIS RENDERING 0 NORIS ADRIAN W/INTERP & POSTPROCE SS SUPERVISI ON RADEX 69940 [facility] SPINE 0 [facility] LUMBOSACR INC INC AL MINIMUM 4 VIEWS HEPATIC 32454 [facility] FUNCTION 0 AMER[employer] [place] [address] [facility] FREE 0 AMERIC AMERIC THYROXINE HOLDING HOLDING BLOOD 31094 [facility] COUNT 0 AMERIC AMERIC COMPLETE HOLDING HOLDING AUTO&AUTO DIFRNTL WBC Encounters Encounter Start End Date Code Location Performer Type Date [facility] - 7 7 [facility] OUTPATIEN INC T EMERGENCY 49606 [facility] 7 7 [facility] INC T VISIT LOW/MODER SEVERITY OFFICE 71420 STEVO SILVESTRE OUTPATIEN 6 6 [facility] T [address] [facility] - 6 6 [facility] OUTPATIEN INC [facility] - 6 6 [facility] OUTPATIEN INC [facility] - 6 6 [facility] OUTPATIEN [facility] - 6 6 [facility] OUTPATIEN INC T OFFICE 40822 [facility] OUTPATIEN 6 6 PHYSICIAN EUG T VISIT S GROUP 15 MINUTES [facility] - 6 6 [facility] OUTPATIEN INC T OFFICE 20870 [facility] CALEB OUTPATIEN 6 6 PHYSICIAN RADHA T VISIT S GROUP 15 MINUTES [facility] - 5 5 [facility] OUTPATIEN INC T OFFICE 67800 [facility] SEGURA OUTPATIEN 5 5 [facility] T VISIT HOSPITAL 15 MINUTES [facility] - 5 5 [facility] OUTPATIEN INC T OFFICE 95012 ALEIDA VANG YULIA OUTPATIEN 4 4 T VISIT 15 MINUTES OFFICE 28952 ALEIDA VANG YULIA OUTPATIEN 4 4 T VISIT 15 MINUTES OFFICE 38067 ALEIDA VANG YULIA OUTPATIEN 3 3 T VISIT 15 MINUTES OFFICE 58048 Sergey Mcelroy ALEIDA BENDER OUTPATIEN 3 3 ROSARIO [facility]CS[facility] T VISIT PSC 25 MINUTES OFFICE 42425 ALEIDA VANG YULIA OUTPATIEN 3 3 T VISIT 15 MINUTES EMERGENCY 86865 CALEB ELLIS 3 3 RADHA RADHA DEPARTMEN T VISIT MODERATE SEVERITY HOSPITAL [facility] - 3 3 [facility] OUTPATIEN INC T EMERGENCY 40854 [facility] 3 3 [facility] DEPARTMEN INC T VISIT LOW/MODER SEVERITY [facility]OSPITAL [facility] - 3 3 [facility] OUTPATIEN INC T EMERGENCY 15685 [facility] DEPT 3 3 [facility] VISIT INC HIGH SEVERITY& THREAT FUNCJ EMERGENCY 71830 CALEB ELLIS DEPT 3 3 RADHA RADHA VISIT HIGH SEVERITY& THREAT FUNCJ OFFICE 77229 ALEIDA VANG YULIA OUTPATIEN 2 2 T VISIT 15 MINUTES OFFICE 66272 ALEIDA VANG YULIA OUTPATIEN 2 2 T VISIT 15 MINUTES HOSPITAL [facility] - 2 2 [facility] OUTPATIEN INC T OFFICE 56298 ALEIDA VANG YULIA OUTPATIEN 2 2 T VISIT 15 MINUTES OFFICE 37291 ALEIDA VANG YULIA OUTPATIEN 2 2 T VISIT 15 MINUTES HOSPITAL [facility] 2 2 [facility] OUTPATIEN INC T EMERGENCY 99925 [facility] 2 2 [facility] DEPARTMEN INC T VISIT LOW/MODER SEVERITY EMERGENCY 87889 EDWARD LEON 2 2 III SUMA III [facility] T VISIT HIGH/URGE NT SEVERITY OFFICE 50885 ALEIDA VINSONES YULIA OUTPATIEN 2 2 T VISIT 15 MINUTES OFFICE 97022 ALEIDAALFREDO VANG YULIA OUTPATIEN 2 2 T VISIT 15 MINUTES OFFICE 74291 A Navi BENDER OUTPATIEN 1 1 ROSARIO HIRSCH T VISIT PSC 15 MINUTES OFFICE 04110 A Navi PONCE A OUTPATIEN 1 1 ROSARIO HIRSCH T VISIT PSC 15 MINUTES EMERGENCY 83778 [facility] 1 1 [facility] T VISIT HIGH/URGE NT SEVERITY HOSPITAL [facility] - 1 1 [facility] T EMERGENCY 83092 DEAN HART DEPT 1 1 EMERGENCY VISIT SERVICES HIGH SEVERITY& THREAT FUNCJ OFFICE 57852 A Navi PONCE A OUTPATIEN 1 1 ROSARIO HIRSCH T VISIT PSC 15 MINUTES EMERGENCY 84438 DEAN LEON 1 1 EMERGENCY III [facility] T VISIT HIGH/URGE NT SEVERITY HOSPITAL [facility] - 1 1 [facility] T EMERGENCY 49949 [facility] 1 1 [facility] T VISIT LOW/MODER SEVERITY OFFICE 06841 A Navi OPNCE A OUTPATIEN 1 1 ROSARIO HIRSCH T VISIT PSC 15 MINUTES OFFICE 76771 MORIS SUBRAMANIAN OUTPATIEN 1 1 MAIN QUACH T NEW 45 MINUTES OFFICE 30001 A Navi PONCE A OUTPATIEN 1 1 ROSARIO HIRSCH T VISIT PSC 15 MINUTES OFFICE 86031 A Navi PONCE A OUTPATIEN 0 0 ROSARIO HIRSCH T VISIT PSC 15 MINUTES HOSPITAL [facility] 0 [facility] OFF[facility] 98190 Sergey Rincon OUTPATIEN 0 0 ROSARIO HIRSCH T [address]
--- OUTSIDE RECORDS SUMMARY | 2017-08-29 22:28 | External Medical Summary Rpt | CCD ---
Author Author , OBINNA Daugherty OBINNA Address Unknown Phone [email or web address] Care Team Providers Care Associate Teacher Name Role Phone A Navi PONCE MD PSC, Sergey Unavailable Unavailable Navi PONCE MD [facility] ABDI Unavailable Unavailable [facility] Un[facility] Un[facility], [facility] NORIS ADRIAN, Unavailable Unavailable NORIS ADRIAN NORIS ADRIAN, Unavailable Unavailable NORIS ADRIAN [facility] Unavailable [place]available [place], [facility] [place] [facility]., [facility] L[facility] Unavailable Unavailable [facility] Unavailable Unavailable FRYMAN EUG, FRYMAN Unavailable Unavailable EUG CALEB RADHA, CALEB Unavailable Unavailable RADHA CALEB RADHA, CALEB Unavailable Unavailable RADHA CARVAJAL HAILEY, CARVAJAL HAILEY Unavailable Unavailable [facility], [facility] Unavailable Unavailable [facility], [facility] Unavailable Unavailable [facility] Un[facility], [facility] Unavailable Unavailable HOSPITAL, [facility], Unavailable Unavailable [facility] K[facility], KONRAD Unavailable Unavailable [facility], [facility] Unavailable Unavailable [facility], [facility] Unavailable Unavailable [facility], [facility] CHANI DWI, CHANI DWI Unavailable Unavailable [facility] Unavailable Unavailable SERVICES, [facility] ALEIDA YULIA, ALEIDA YULIA Unavailable Unavailable ALEIDA YULIA, ALEIDA YULIA Unavailable Unavailable [facility] Unavailable Unavailable [id number] # [id number], [facility] [id number] # [phone] WEHRMAN III SUMA, Unavailable Unavailable [...] UNSPECIFIED [facility] N63 UNSPECIFIED 06-24-2016 [facility] IN MED[facility] BREAST [facility] N6489 OTHER 06-24-2016 [facility] SPECIFIED [facility]ICAL DISORDERS [facility] OF BREAST B1920 UNS VIRAL 06-22-2016 [facility] HEPATITIS C [facility] WITHOUT INC HEPATIC COMA R1011 RIGHT UPPER 06-19-2016 [facility] PA[facility] GROUP Z0000 ENCOUNTER 06-11-2016 [facility] GEN ADULT [facility] MED EXAM INC W/O ABNORMAL FIND R17 UNSPECIFIED 06-06-2016 [facility] JAUNDICE PHYSICIANS GROUP R339 RETENTION 10-05-2015 [facility] OF URINE [facility] L0291 CUTANEOUS 09-26-2015 [facility] ABSCESS [facility] UNSPECIFIED INC 75563 GENERALIZED 04-08-2014 [facility] PAIN ADRIAN 9599 INJURY 04-08-2014 NOR[facility] OTHER AND ADRIAN UNSPECIFIED UNSPECIFIED SITE 91625 GENERALIZED 04-07-2014 ALEIDA YULIA ANXIETY DISORDER 21286 OTHER 04-07-2014 ALEIAD YULIA MALAISE AND FATIGUE 4659 ACUTE URIS 12-09-2013 ALEIDA YULIA OF UNSPECIFIED SITE 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 V5869 LONG-TERM 06-30-2013 A Navi PONCE (CURRENT) PSC USE OF OTHER MEDICATIONS V5883 ENCOUNTER 06-30-2013 A Navi PONCE FOR MD PSC THERAPEUTIC DRUG MONITORING 7080 ALLERGIC 01-02-2013 [facility] URTICARIA [facility] 7089 UNSPECIFIED 01-02-2013 CALEB RADHA URTICARIA 9953 ALLERGY 01-02-2013 CALEB RADHA UNSPECIFIED NOT ELSEWHERE CLASSIFIED 0088 INTESTINAL 12-31-2012 [facility] INFECTION [facility] DUE TO INC OTHER ORGANISM NEC 5589 OTH&UNSPEC 12-30-2012 CALEB RADHA NONINFECTIO 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 ITIS&COLITI S 4011 ESSENTIAL 08-24-2012 ALEIDA YULIA HYPERTENSIO N, BENIGN 73993 OTHER 05-10-2012 ALEIDA YULIA CLOSED FRACTURES OF DISTAL END OF RADIUS 11603 CLOSED 04-21-2012 [facility] COLLES [facility] FRACTURE INC 71797 CLOSED 04-21-2012 [facility] FRACTURE OF MEDICAL LOWER END IMAGING ASS OF RADIUS WITH ULNA V674 TREATMENT 04-21-2012 [facility] HEALED [facility] FRACTURE [facility]ING ASS FOLLOW-UP EXAMINATION 23093 SPRAIN AND 04-05-2012 ALEIDA YULIA STRAIN OF TIBIOFIBULA R 35331 PAIN IN 04-04-2012 [facility] JOINT[facility] FOREARM [facility] 41562 PAIN IN 04-04-2012 [facility] [facility] ANKLE AND IM[facility]ING [facility] FOOT 44409 SPRAIN AND 04-04-2012 WEHRMAN III STRAIN OF SUMA UNSPECIFIED SITE OF WRIST 30111 UNSPECIFIED 04-04-2012 WEHRMAN III SITE OF SUMA ANKLE SPRAIN AND STRAIN E8889 UNSPECIFIED 04-04-2012 [facility] 4019 UNSPECIFIED 02-25-2012 ALEIDA YULIA ESSENTIAL HYPERTENSIO N 91139 INSOMNIA 11-27-2011 ALEIDA YULIA UNSPECIFIED 94711 OTHER 07-24-2011 A Navi PONCE MONONEURINICOLE HIRSCH PSC S OF LOWER LIMB 81490 PAIN IN 07-24-2011 A Navi NORRIS MD PSC LOWER LEG 54954 LATERAL 07-24-2011 A Navi PONCE EPICONDYLIT PSC IS OF ELBOW 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 TE 75 SE [...] 0 60 0 RI 91 MO Ac DE 60 -0 -0 0. TE 57 SE [...] 93 UL 8 E # 03 93 DE 00 10 10 30 5 RI 90 [...] BL 93 ET 8 # 03 93 DE 00 09 10 2 30 7 RI [...] BL 93 ET 8 # 03 93 DE 00 09 09 2 30 7 RI 89 MO Ac OM 60 -0 -1 .0 TE 81 SE ti ET 35 8- 6- 00 64 S ve MOLINA [address] ZI 82 11 11 D EP NE 1 PH HE AR N 25 MA A CY MG 03 TA 93 BL 8 ET # 03 93 DE 00 09 09 2 30 7 RI 89 MO Ac OM 60 -0 -0 .0 TE 81 SE ti ET 35 8- 8- 00 64 S ve MLOINA [address] ZI 82 [...] CY OF CY NT HI AN A DE 16 05 05 0 60 30 EA [...] 93 ET 8 # 03 93 GA 00 03 03 [...] CA 8 P # 03 93 GA 53 03 03 [...] ent ider Refu lity Give sed n IIV3 02- 141 SARI No SARI 5-20 ROSENDO ROSENDO VACC 13 MEM [facility] INE SPLI HOSP HOSP T INC INC VIRU S 0.5 ML DOSA GE IM USE PPSV 02-1 33 SARI No SARI 23 5-20 ROSENDO ROSENDO VACC 13 MEM MEM INE 2 HOSP HOSP YRS INC INC OR ESTELA Najera FOR SUBQ /IM USE Procedures Procedure DOS Code Location Performer Comment COLLECTIO 07979 [facility] N VENOUS 6 [facility] [place] [address] [facility] FREE 6 [facility] [place] [address] [facility] THYROID 6 [facility] STIMULATI INC INC NG HORMONE TSH DIAGNOSTI G0204 DAV ABDI C 6 MEDICAL MAMMOGRAP IMAGING HY INCL ASS CAD WHEN PERF; BILAT US BREAST 16888 [facility] UNI REAL 6 [facility] TIME INC INC WITH IMAGE COMPLETE US BREAST 95204 DAV ABDI UNI REAL 6 MEDICAL [place] [address] [facility] INFUSION 6 [facility] THERAPY/P INC INC ROPHYLAXI S /DX 1ST TO 1 [place] [address] [facility] INFUSION 6 [facility] THERAPY/P INC INC ROPHYLAXI S /DX 1ST [place] [address] [place] [address] [facility] ABDOMINAL 6 [facility] REAL INC INC TIME W/IMAGE LIMITED DRUG TST G0477 [facility] PRESUMP;Navi 6 [facility] PBL BEING INC INC READ DC OPT OBV ONLY DRUG TEST G0480 [facility] DEFINITV [address] ID INC INC METH P DAY 1-7 DRUG CL CULTURE 45189 [facility] BACTERIAL 6 [facility] INC INC QUANTTATI VE COLONY COUNT URINE HEPATITIS 28076 [facility] A 6 [facility] ANTIBODY INC INC HAAB COMPREHEN 29620 [facility] SIVE 6 [facility] METABOLIC INC INC PANEL COLLECTIO 81685 [facility] Cline VENOUS 6 [facility] BLOOD INC INC VENIPUNCT URE URNLS DIP 27492 [facility] 6 [facility] STICK/TAB INC INC LET REAGENT AUTO MICROSCOP Y HEMOGLOBI 44284 [facility] N 6 [facility] GLYCOSYLA INC INC KOBI A1C HEPATITIS 40510 [facility] Mcelroy 6 [facility] ANTIBODY INC INC PROTHROMB 11528 [facility] IN TIME 6 [facility] INC INC HEPATITIS 60190 [facility] Fair CORE 6 [facility] ANTIBODY INC INC HBCAB TOTAL HEPATITIS 68970 [facility] B SURF 6 [facility] [place] [address] [facility] HEPATITIS 6 [facility] B INC INC SURFACE ANTIGEN BLOOD 24311 [facility] COUNT 6 [facility] COMPLETE INC INC AUTO&AUTO DIFRNTL WBC URNLS DIP 86227 [facility] TAYLORYMAN 5 [facility] LET RGNT NON-AUTO W/O MICRSCP CULTURE 30424 [facility] BACTERIAL 5 [facility] INC INC QUANTTATI VE COLONY COUNT URINE SUSCEPTIB 82078 [facility] LTY STDY [address] [facility] ANTIMICRB INC INC IAL MICRO/AGA R DILUTJ CUL BACT 61620 [facility] GENTILEON XCPT 5 [facility] URINE INC INC BLOOD/STO OL AEROBIC ISOL CUL BACT 90759 [facility] AEROBIC 5 [facility] ADDL INC INC METHS DEFINITIV E EA ISOL RADIOLOGI 13955 NORIS NORIS C 4 ADRIAN ADRIAN EXAMINATI ON ANKLE 2 VIEWS RADIOLOGI 28548 NORIS NORIS C 4 ADRIAN ADRIAN EXAMINATI ON FOOT 2 VIEWS DRUG SCR G0434 Sergey SHIN YULIA NOT 3 ROSARIO HIRSCH CHROMATOG PSC RAPHIC; ANY NUMBER PT ENC THERAPEUT 00600 [facility] IC 3 [facility] PROPHYLAC INC INC TIC/DX INJECTION SUBQ/IM IIV3 48293 [facility] VACCINE 3 [facility] SPLIT INC INC VIRUS 0.5 ML DOSAGE IM USE PPSV23 02728 [facility] VACCINE 2 3 [facility] YRS OR INC INC OLDER FOR SUBQ/IM USE THERAPEUT 96818 [facility] IC 3 [facility] INJECTION [place] [address] [facility] ABDOMEN & 3 [facility] PELVIS INC INC W/[place] [address] [facility] INFUSION 3 [facility] THERAPY/P INC INC ROPHYLAXI S /DX 1ST TO 1 HR URNLS DIP [address] [facility] [address] [facility] STICK/TAB INC INC LET REAGENT AUTO MICROSCOP Y BLOOD 30332 [facility] COUNT [address] [facility] COMPLETE INC INC AUTO&[place] [address] [facility] LIPASE [address] [facility] INC INC HOSPITAL G0378 [facility] OBSERVATI [address] [facility] ON INC INC SERVICE PER HOUR COMPREHEN 63393 [facility] SIVE [address] [facility] [place] [address] [facility] AMYL[address] [facility] INC INC RADEX [address] [facility] [address] [facility] COMPLETE INC INC MINIMUM 3 VIEWS APPLICATI 37615 ALEIDA YULIA ALEIDA YULIA ON CAST 2 ELBOW FINGER SHORT ARM APPLICATI 38330 ALEIDA YULIA ALEIDA YULIA ON SHORT 2 ARM SPLINT FOREARM-H AND STATIC APPLICATI 15249 [facility] ON SHORT [address] [facility] ARM INC INC SPLINT FOREARM-H AND STATIC RADEX 79124 [facility] FOOT [address] [facility] COMPLETE INC INC MINIMUM 3 VIEWS RADEX 55823 [facility] ANKLE [address] [facility] COMPLETE INC INC MINIMUM 3 VIEWS APPLICATI 47986 [facility] ON SHORT [address] [facility] LEG INC INC SPLINT CALF FOOT RADEX 52741 [facility] FOREARM [address] [facility] VIEWS INC INC RADEX 23272 [facility]RI[facility] [address] [facility] COMPLETE INC INC MINIMUM 3 VIEWS ECG 13362 [facility] ROUTINE 1 [facility] ECG INC INC W/LEAST 12 LDS TRCG ONLY W/O I&R RADIOLOGI 89430 DAV HAMM C EXAM 1 MEDICAL ADRIAN CHEST 2 IMAGING VIEWS ASS FRONTAL&[place] [address] [facility] INFUSION 1 [facility] THERAPY/P INC INC ROPHYLAXI S /DX 1ST TO 1 HR ECG 08260 [facility] CHANI DWI ROUTINE 1 [facility] W/LEAST P 12 LDS I&[place] [address] [facility] THYROXINE 1 [facility] TOTAL INC INC BASIC 47115 [facility] METABOLIC [address] [facility] PANEL INC INC CALCIUM TOTAL 3D 37407 DAV NORIS RENDERING 1 MEDICAL ADRIAN W/INTERP IMAGING & [place] [address] DAV HAMM HEAD/BRAI 1 MEDICAL ADRIAN N [place] [address] [facility] INFUSION [address] [facility] THERAPY INC INC PROPHYLAX IS/DX EA HOUR CREATINE 23106 [facility] KINASE MB [address] [facility] FRACTION INC INC ONLY CREATINE 39696 [facility] KIN[address] [facility] TOTAL INC INC BLOOD 74878 [facility] COUNT 1 [facility] COMPLETE INC INC AUTO&AUTO DIFRNTL WBC THYROID 58898 [facility] HORM [address] [facility] UPTK/THYR INC INC [place] [address] [facility] TROPONIN 1 [facility] [place] [address] [facility] [address] [facility] STIMULATI INC INC NG HORMONE TSH ANKLE L4350 [facility] CONTROL 1 ORTHOSIS STIRRUP STYL RIGID PREFAB RADEX 95804 [facility] FOOT [address] [facility] COMPLETE INC INC MINIMUM 3 VIEWS RADEX 78[address] [facility] [address]KLE [address] [facility] COMPLETE INC INC MINIMUM 3 VIEWS CRTCHS E0114 [facility] UNDARM 1 OTH THAN WOOD PAIR PAD TIP&HNDGR IP RHYTHM 26591 [facility] ECG 1-3 1 [facility] LEADS INC INC TRACING ONLY W/O I&R MRI 46369 FIDELINA C NORIS SPINAL 0 NORIS ADRIAN CANAL LUMBAR W/O CONTRAST MATERIAL 3D 91892 FIDELINA C NORIS RENDERING 0 NORIS ADRIAN W/INTERP & POSTPROCE SS SUPERVISI ON RADEX 16520 DAV NORIS SPINE 0 MEDICAL ADRIAN LUMBOSACR IMAGING AL ASS MINIMUM 4 VIEWS HEPATIC 52147 [facility] FUNCTION 0 AMERIC [place] [address] [facility] FREE 0 AMERIC AMERIC THYROXINE HOLDING HOLDING BLOOD 01271 [facility] COUNT 0 AMERIC AMERIC COMPLETE HOLDING HOLDING AUTO&AUTO DIFRNTL WBC Encounters Encounter Start End Date Code Location Performer Type Date HOSPITAL [facility] 7 [facility] OUTPATIEN INC T EMERGENCY [address] [facility] [address] [facility] T VISIT LOW/MODER SEVERITY OFFICE 87769 STEVO SILVESTRE OUTPATIEN 6 6 [facility] T [address] [facility] - [address] [facility] - 6 6 [facility] [address] [facility] - 6 6 [facility] OUTPATIEN [facility] T OFFICE 29425 [facility] FRYMAN OUTPATIEN 6 6 PHYSICIAN EUG T VISIT S GROUP 15 MINUTES HOSPITAL [facility] [address] [facility] OUTPATIEN [facility] T OFFICE 45406 [facility] CALEB OUTPATIEN 6 6 PHYSICIAN RADHA T VISIT S GROUP 15 MINUTES OFFICE 16789 [facility] SEGURA OUTPATIEN 5 5 [facility] T VISIT HOSPITAL 15 MINUTES HOSPITAL [facility] - 5 5 [facility]PATIEN [facility] - 5 5 [facility] OUTPATIEN INC T OFFICE 39907 ALEIDA YULIA ALEIDA YULIA OUTPATIEN 4 4 T VISIT 15 MINUTES OFFICE 71756 ALEIDA VANG YULIA OUTPATIEN 4 4 T VISIT 15 MINUTES OFFICE 86207 ALEIDA VANG YULIA OUTPATIEN 3 3 T VISIT 15 MINUTES OFFICE 80052 Sergey BENDER OUTPATIEN 3 3 ROSARIO HIRSCH T VISIT PSC 25 MINUTES OFFICE 74766 ALEIDA VANG YULIA OUTPATIEN 3 3 T VISIT 15 MINUTES EMERGENCY 39837 [facility] 3 3 [facility] DEPARTMEN INC T VISIT LOW/MODER SEVERITY EMERGENCY 61833 CALEB ELLIS 3 3 RADHA RADHA DEPARTMEN T VISIT MODERATE SEVERITY HOSPITAL [facility] - 3 3 [facility] OUTPATIEN INC T EMERGENCY 01467 [facility] DEPT [address] [facility] VISIT INC HIGH SEVERITY& THREAT [facility] - 3 3 [facility] OUTPATIEN INC T EMERGENCY 60015 CAL[facility] ELLIS DEPT 3 3 RADHA RADHA VISIT HIGH SEVERITY& THREAT FUNCJ OFFICE 66933 ALEIDA VANG YULIA OUTPATIEN 2 2 T VISIT 15 MINUTES OFFICE 58489 ALEIDA VANG YULIA OUTPATIEN 2 2 T VISIT 15 MINUTES HOSPITAL [facility] - 2 2 [facility] OUTPATIEN INC T OFFICE 07683 ALEIDA VANG YULIA OUTPATIEN 2 2 T VISIT 15 MINUTES OFFICE 48381 ALEIDA VANG YULIA OUTPATIEN 2 2 T VISIT 15 MINUTES EMERGENCY 66590 [facility] 2 2 [facility] DEPARTMEN INC T VISIT LOW/MODER SEVERITY HOSPITAL [facility] - 2 2 [facility] OUTPATIEN INC T EMERGENCY 29823 EDWARD LEON 2 2 III SUMA III SUMA DEPARTMEN T VISIT HIGH/URGE NT SEVERITY OFFICE 70009 ALEIDA VINSONES YULIA OUTPATIEN 2 2 T VISIT 15 MINUTES OFFICE 92947 ALEIDA VANG YULIA OUTPATIEN 2 2 T VISIT 15 MINUTES OFFICE 99634 A C ALEIDA YULIA OUTPATIEN 1 1 ROSARIO HIRSCH T VISIT PSC 15 MINUTES OFFICE 25956 A Navi Rincon OUTPATIEN 1 1 ROSARIO HIRSCH T VISIT PSC 15 MINUTES EMERGENCY 27936 DEAN HART DEPT 1 1 EMERGENCY VISIT SERVICES HIGH SEVERITY& THREAT [facility] [address] [facility] OUTPATIEN INC T EMERGENCY [address] [facility] [address] [facility] DEPARTMEN INC T VISIT HIGH/URGE NT SEVERITY OFFICE 11567 A Navi PONCE A OUTPATIEN 1 1 ROSARIO HIRSCH T VISIT PSC 15 MINUTES EMERGENCY [address] [facility] [address] [facility] DEPARTMEN INC T VISIT LOW/MODER SEVERITY HOSPITAL [facility] [address] [facility] OUTPATIEN INC T EMERGENCY 56458 DEAN LEON 1 1 EMERGENCY III [facility] T VISIT HIGH/URGE NT SEVERITY OFFICE 07294 A Navi Rincon OUTPATIEN 1 1 ROSARIO HIRSCH T VISIT PSC 15 MINUTES OFFICE 09769 MORIS SUBRAMANIAN OUTPATIEN 1 1 MAIN QUACH T NEW 45 MINUTES OFFICE 82276 A Navi PONCE A OUTPATIEN 1 1 ROSARIO HIRSCH T VISIT PSC 15 MINUTES OFFICE 41419 A Navi PONCE A OUTPATIEN 0 0 ROSARIO HIRSCH T VISIT PSC 15 MINUTES HOSPITAL [facility] 0 0 [facility] OUTPATIEN INC T OFFICE 97871 A aNvi PONCE A OUTPATIEN 0 0 ROSARIO HIRSCH T NEW 30 PSC MINUTES
--- OUTSIDE RECORDS SUMMARY | 2017-08-29 22:28 | External Medical Summary Rpt | CCD ---
Author Author , OBINNA Daugherty OBINNA Address Unknown Phone [email or web address] Care Team Providers Care Second Operator Name Role Phone A Navi PONCE MD PSC, Sergey Unavailable Unavailable Nvai PONCE MD [facility]BD[facility] Unavailable Unavailable [facility] Un[facility] Unavailable [facility], [facility] NORIS ADRIAN, Unavailable Unavailable NORIS ADRIAN NORIS ADRIAN, Unavailable Unavailable NORIS ADRIAN [facility] [place]available [place], [facility] [place] [facility]., [facility] Unavailable Unavailable [facility] Unavailable Unavailable FRYMAN EUG, FRYMAN Unavailable Unavailable EUG CALEB RADHA, CALEB Unavailable Unavailable RADHA CALEB RADHA, CALEB Unavailable Unavailable RADHA CARVAJAL HAILEY, CARVAJAL HAILEY Unavailable Unavailable [facility], [facility] Unavailable Unavailable [facility], [facility] Unavailable Unavailable [facility] Un[facility], [facility] Unavailable Unavailable HOSPITAL, [facility], Unavailable Unavailable [facility], KONRAD Unavailable Unavailable [facility] Unavailable Unavailable [facility], [facility] Unavailable Unavailable [facility], [facility] CHANI DWI, CHANI DWI Unavailable Unavailable [facility] Unavailable Unavailable SERVICES, [facility] ALEIDA YULIA, ALEIDA YULIA Unavailable Unavailable ALEIDA YULIA, ALEIDA YULIA Unavailable Unavailable [facility] Unavailable Unavailable [id number] # [id number], [facility] [id number] # [phone] WEHRMAN III SUMA, Unavailable Unavailable [...] [facility]NSPECIFIED [facility] N63 UNSPECIFIED 06-24-2016 [facility] N6489 OTHER 06-24-2016 [facility] SPECIFIED [facility] DISORDERS [facility] OF BREAST B1920 UNS VIRAL 06-22-2016 [facility] HEPATITIS C [facility] WITHOUT INC HEPATIC COMA R1011 RIGHT UPPER 06-19-2016 [facility] Z0000 ENCOUNTER 06-11-2016 [facility] GEN ADULT [facility] MED EXAM INC W/O ABNORMAL FIND R17 UNSPECIFIED 06-06-2016 [facility]DICE PHYSICIANS GROUP R339 RETENTION 10-05-2015 [facility] OF URINE [facility] L0291 CUTANEOUS 09-26-2015 [facility] ABSCESS [facility] UNSPECIFIED INC 83805 GENERALIZED 04-08-2014 [facility] PAIN ADRIAN 9599 INJURY 04-08-2014 [facility] OTHER AND ADRIAN UNSPECIFIED UNSPECIFIED SITE 06479 GENERALIZED 04-07-2014 ALEIDA YULIA ANXIETY DISORDER 54992 OTHER 04-07-2014 ALEIDA YULIA MALAISE AND FATIGUE 4659 ACUTE URIS 12-09-2013 ALEIDA YULIA OF UNSPECIFIED SITE 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 V5869 LONG-TERM 06-30-2013 A Navi OPNCE (CURRENT) PSC USE OF OTHER MEDICATIONS V5883 [...] ESSENTIAL 08-24-2012 ALEIDA YULIA HYPERTENSIO N, BENIGN 53938 OTHER 05-10-2012 ALEIDA YULIA CLOSED FRACTURES OF DISTAL END OF RADIUS 19026 CLOSED 04-21-2012 [facility] COLLES [facility] FRACTURE INC 25327 CLOSED 04-21-2012 [facility] FRACTURE OF MEDICAL LOWER END IMAGING ASS OF RADIUS WITH ULNA V674 TREATMENT 04-21-2012 [facility] HEALED [facility] FRACTURE [facility]ING ASS FOLLOW-UP EXAMINATION 21388 SPRAIN AND 04-05-2012 ALEIDA YULIA STRAIN OF TIBIOFIBULA R 40509 PAIN IN 04-04-2012 [facility] FOREARM [facility] 43915 PAIN IN 04-04-2012 [facility] ANKLE AND IMAGING ASS FOOT 14319 SPRAIN AND 04-04-2012 WEHRMAN III STRAIN OF SUMA UNSPECIFIED SITE OF WRIST 58372 UNSPECIFIED 04-04-2012 WEHRMAN III SITE OF SUMA ANKLE SPRAIN AND STRAIN E8889 UNSPECIFIED 04-04-2012 [facility] 4019 UNSPECIFIED 02-25-2012 ALEIDA YULIA ESSENTIAL HYPERTENSIO N 87631 INSOMNIA 11-27-2011 ALEIDA YULIA UNSPECIFIED 34914 OTHER 07-24-2011 A Navi PONCE MONONEURINICOLE HIRSCH PSC S OF LOWER LIMB 97142 PAIN IN 07-24-2011 A Navi NORRIS MD PSC LOWER LEG 38794 LATERAL 07-24-2011 A Navi PONCE EPICONDYLIT PSC IS OF ELBOW 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 TE 75 SE [...] 0 60 0 RI 91 MO Ac MO 60 -0 -0 0. TE 57 SE [...] 93 UL 8 E # 03 93 MO 00 10 10 30 5 RI 90 [...] BL 93 ET 8 # 03 93 MO 00 09 10 2 30 7 RI [...] BL 93 ET 8 # 03 93 MO 00 09 09 2 30 7 RI 89 MO Ac OM 60 -0 -1 .0 TE 81 SE ti ET 35 8- 6- 00 64 S ve MOLINA [address] ZI 82 11 11 D EP NE 1 PH HE AR N 25 MA A CY MG 03 TA 93 BL 8 ET # 03 93 MO 00 09 09 2 30 7 RI [...] CY OF CY NT HI AN A MO 16 05 05 0 60 30 EA [...] Procedure DOS Code Location Performer Comment COLLECTIO 26031 [facility] N VENOUS 6 [facility] [place] [address] [facility] FREE 6 [facility] [place] [address] [facility] THYROID 6 [facility] STIMULATI INC INC NG HORMONE TSH DIAGNOSTI G0204 DAV ABDI C 6 MEDICAL MAMMOGRAP IMAGING HY INCL ASS CAD WHEN PERF; BILAT US BREAST 02320 [facility] UNI REAL 6 [facility] TIME INC INC WITH IMAGE COMPLETE US BREAST 03304 DAV ABDI UNI REAL 6 MEDICAL [place] [address] [facility] INFUSION 6 [facility] THERAPY/P INC INC ROPHYLAXI S /DX 1ST [place] [address] [facility] INFUSION 6 [facility] THERAPY/P INC INC ROPHYLAXI S /DX 1ST [place] [address] [place] [address] [facility] ABDOMINAL 6 [facility] REAL INC INC TIME W/IMAGE LIMITED DRUG TST G0477 [facility] PRESUMP;Navi 6 [facility] PBL BEING INC INC READ DC OPT OBV ONLY DRUG TEST G0480 [facility] DEFINITV [address] ID INC INC METH P DAY 1-7 DRUG CL CULTURE 48310 [facility] BACTERIAL 6 [facility] INC INC QUANTTATI VE COLONY COUNT URINE HEPATITIS 52518 [facility] A 6 [facility] ANTIBODY INC INC HAAB COMPREHEN 42162 [facility] STAKR SIVE 6 [facility] METABOLIC INC INC PANEL COLLECTIO 62456 [facility] Cline VENOUS 6 [facility] BLOOD INC INC VENIPUNCT URE URNLS DIP 14875 [facility] 6 [facility] STICK/TAB INC INC LET REAGENT AUTO MICROSCOP Y HEMOGLOBI 89745 [facility] N 6 [facility] GLYCOSYLA INC INC KOBI A1C HEPATITIS 90931 [facility] Mcelroy 6 [facility] ANTIBODY INC INC PROTHROMB 94900 [facility] IN TIME 6 [facility] INC INC HEPATITIS 00931 [facility] Fair CORE 6 [facility] ANTIBODY INC INC HBCAB TOTAL HEPATITIS 28040 [facility] B SURF 6 [facility] [place] [address] [facility] HEPATITIS 6 [facility] B INC INC SURFACE ANTIGEN BLOOD 09115 [facility] COUNT 6 [facility] COMPLETE INC INC AUTO&AUTO DIFRNTL WBC URNLS DIP 74407 [facility] TAYLORYMAN 5 [facility] LET RGNT NON-AUTO W/O MICRSCP CULTURE 11168 [facility] BACTERIAL 5 [facility] INC INC QUANTTATI VE COLONY COUNT URINE SUSCEPTIB 05577 [facility] LTY STDY 5 [facility] ANTIMICRB INC INC IAL MICRO/AGA R DILUTJ CUL BACT 26798 [facility] GENTILEON XCPT 5 [facility] URINE INC INC BLOOD/STO OL AEROBIC ISOL CUL BACT 36235 [facility] AEROBIC 5 [facility] ADDL INC INC METHS DEFINITIV E EA ISOL RADIOLOGI 10589 NORIS NORIS C 4 ADRIAN ADRIAN EXAMINATI ON ANKLE 2 VIEWS RADIOLOGI 42609 NOR[facility] NORIS C 4 ADRIAN ADRIAN EXAMINATI ON FOOT 2 VIEWS DRUG SCR G0434 Sergey SHIN YULIA NOT 3 ROSARIO HIRSCH CHROMATOG PSC RAPHIC; ANY NUMBER PT ENC THERAPEUT 73013 [facility] IC 3 [facility] PROPHYLAC INC INC TIC/DX INJECTION SUBQ/IM IIV3 15362 [facility] VACCINE 3 [facility] SPLIT INC INC VIRUS 0.5 ML DOSAGE IM USE PPSV23 84043 [facility] VACCINE 2 3 [facility] YRS OR INC INC OLDER FOR SUBQ/IM USE THERAPEUT 00627 [facility] IC 3 [facility] INJECTION [place] [address] [facility] ABDOMEN & 3 [facility] PELVIS [place] [address] [facility] INFUSION 3 [facility] THERAPY/P INC INC ROPHYLAXI S /DX 1ST TO 1 HR URNLS DIP 31070 [facility] 3 [facility] STICK/TAB INC INC LET REAGENT AUTO MICROSCOP Y BLOOD 02770 [facility] COUNT 3 [facility] COMPLETE INC INC AUTO&[place] [address] [facility] LIPASE 3 [facility] INC INC HOSPITAL G0378 [facility] OBSERVATI 3 [facility] ON INC INC SERVICE PER HOUR COMPREHEN 36338 [facility] SIVE 3 [facility] [place] [address] [facility] AMYLASE 3 [facility] INC INC RADEX 55949 [facility] WRIST 2 [facility] COMPLETE INC INC MINIMUM 3 VIEWS APPLICATI 95137 ALEIDA YULIA ALEIDA YULIA ON CAST 2 ELBOW FINGER SHORT ARM APPLICATI 41341 ALEIDA YULIA ALEIDA YULIA ON SHORT 2 ARM SPLINT FOREARM-H AND STATIC APPLICATI 00169 [facility] ON SHORT 2 [facility] ARM INC INC SPLINT FOREARM-H AND STATIC RADEX 15489 [facility] FOOT 2 [facility] COMPLETE INC INC MINIMUM 3 VIEWS RADEX 58653 [facility] ANKLE 2 [facility] COMPLETE INC INC MINIMUM 3 VIEWS APPLICATI 57722 [facility] ON SHORT 2 [facility] LEG INC INC SPLINT CALF FOOT RADEX 71691 [facility] FOREARM 2 2 [facility] VIEWS INC INC RADEX 28710 [facility] WRIST 2 [facility] COMPLETE INC INC MINIMUM 3 VIEWS ECG 14002 [facility] ROUTINE 1 [facility] ECG INC INC W/LEAST 12 LDS TRCG ONLY W/O I&R RADIOLOGI 69542 DAV HAMM C EXAM 1 MEDICAL ADRIAN CHEST 2 IMAGING VIEWS ASS FRONTAL&[place] [address] [facility] INFUSION 1 [facility] THERAPY/P INC INC ROPHYLAXI S /DX 1ST TO 1 HR ECG 40316 [facility] CHANI DWI ROUTINE 1 [facility] W/LEAST P 12 LDS I&[place] [address] [facility] THYROXINE 1 [facility] TOTAL INC INC BASIC 40038 [facility] METABOLIC 1 [facility] PANEL INC INC CALCIUM TOTAL 3D 18210 DAV NORIS RENDERING 1 MEDICAL ADRIAN W/INTERP IMAGING & [place] [address] DAV HAMM HEAD/BRAI 1 MEDICAL ADRIAN N [place] [address] [facility] INFUSION 1 [facility] THERAPY INC INC PROPHYLAX IS/DX EA HOUR CREATINE 04344 [facility] KINASE MB 1 [facility] FRACTION INC INC ONLY CREATINE 20289 [facility] KINASE 1 [facility] TOTAL INC INC BLOOD 78584 [facility] COUNT 1 [facility] COMPLETE INC INC AUTO&AUTO DIFRNTL WBC THYROID 01812 [facility] HORM 1 [facility] UPTK/THYR INC [place] [address] [facility] TROPONIN 1 [facility] [place] [address] [facility] THYROID 1 [facility] STIMULATI INC INC NG HORMONE TSH ANKLE L4350 [facility] CONTROL 1 ORTHOSIS STIRRUP STYL RIGID PREFAB RADEX 96392 [facility] FOOT 1 [facility] COMPLETE INC INC MINIMUM 3 VIEWS RADEX 92752 [facility] ANKLE 1 [facility] COMPLETE INC INC MINIMUM 3 VIEWS CRTCHS E0114 [facility] UNDARM 1 OTH THAN WOOD PAIR PAD TIP&HNDGR IP RHYTHM 52852 [facility] ECG 1-3 1 [facility] LEADS INC INC TRACING ONLY W/O I&R MRI 13902 FIDELINA C NORIS SPINAL 0 [facility] ADRIAN CANAL LUMBAR W/O CONTRAST MATERIAL 3D 98415 FIDELINA C NORIS RENDERING 0 [facility] ADRIAN W/INTERP & POSTPROCE SS SUPERVISI ON RADEX 64017 DAV NORIS SPINE 0 MEDICAL ADRIAN LUMBOSACR IMAGING AL ASS MINIMUM 4 VIEWS HEPATIC 81208 [facility] FUNCTION 0 AMERIC [place] [address] [facility] FREE 0 AMERIC AMERIC THYROXINE HOLDING HOLDING BLOOD 73949 [facility] COUNT 0 AMERIC AMERIC COMPLETE HOLDING HOLDING AUTO&AUTO DIFRNTL WBC Encounters Encounter Start End Date Code Location Performer Type Date HOSPITAL [facility] 7 7 [facility] OUTPATIEN INC T EMERGENCY 60984 [facility] 7 7 [facility] T VISIT LOW/MODER SEVERITY OFFICE 89063 STEVO SILVESTRE OUTPATIEN 6 6 DIGESTIVE C[facility] T [address] [facility] - 6 6 [facility] - 6 6 [facility]PATIEN [facility] - 6 6 [facility] - 6 6 [facility] OUTPATIEN [facility] T OFFICE 46312 [facility] FRYMAN OUTPATIEN 6 6 PHYSICIAN EUG T VISIT S GROUP 15 MINUTES HOSPITAL [facility] - 6 6 [facility] OUTPATIEN [facility] T OFFICE 53813 [facility] CALEB OUTPATIEN 6 6 PHYSICIAN RADHA T VISIT S GROUP 15 MINUTES OFFICE 07698 [facility] SEGURA OUTPATIEN 5 5 [facility] T VISIT HOSPITAL 15 MINUTES HOSPITAL [facility] - 5 5 [facility] OUTPATIEN [facility] - 5 5 [facility] OUTPATIEN INC T OFFICE 47686 ALEIDA YULIA ALEIDA YULIA OUTPATIEN 4 4 T VISIT 15 MINUTES OFFICE 98589 ALEIDA VANG YULIA OUTPATIEN 4 4 T VISIT 15 MINUTES OFFICE 31509 ALEIDA VANG YULIA OUTPATIEN 3 3 T VISIT 15 MINUTES OFFICE 09369 Sergey BENDER OUTPATIEN 3 3 ROSARIO HIRSCH T VISIT PSC 25 MINUTES OFFICE 07500 ALEIDA VANG YULIA OUTPATIEN 3 3 T VISIT 15 MINUTES EMERGENCY 64645 [facility] 3 3 [facility] DEPARTMEN INC T VISIT LOW/MODER SEVERITY EMERGENCY 89881 CALEB ELLIS 3 3 RADHA RADHA DEPARTMEN T VISIT MODERATE SEVERITY HOSPITAL [facility] - 3 3 [facility] OUTPATIEN INC T EMERGENCY 03043 [facility] DEPT 3 3 [facility] VISIT INC HIGH SEVERITY& THREAT [facility] - 3 3 [facility] OUTPATIEN INC T EMERGENCY 84885 CALEB ELLIS DEPT 3 3 RADHA RADHA VISIT HIGH SEVERITY& THREAT FUNCJ OFFICE 98698 ALEIDA VANG YULIA OUTPATIEN 2 2 T VISIT 15 MINUTES OFFICE 06856 ALEIDA VANG YULIA OUTPATIEN 2 2 T VISIT 15 MINUTES HOSPITAL [facility] - 2 2 [facility] OUTPATIEN INC T OFFICE 84512 ALEIDA VANG YULIA OUTPATIEN 2 2 T VISIT 15 MINUTES OFFICE 54687 ALEIDA VANG YULIA OUTPATIEN 2 2 T VISIT 15 MINUTES EMERGENCY 89906 [facility] 2 2 [facility] DEPARTMEN INC T VISIT LOW/MODER SEVERITY HOSPITAL [facility] - 2 2 [facility] OUTPATIEN INC T EMERGENCY 75249 EDWARD LEON 2 2 III SUMA III SUMA DEPARTMEN T VISIT HIGH/URGE NT SEVERITY OFFICE 72260 ALEIDA VINSONES YULIA OUTPATIEN 2 2 T VISIT 15 MINUTES OFFICE 76715 ALEIDA VANG YULIA OUTPATIEN 2 2 T VISIT 15 MINUTES OFFICE 19353 A C ALEIDA YULIA OUTPATIEN 1 1 ROSARIO HIRSCH T VISIT PSC 15 MINUTES OFFICE 88996 A Navi Rincon OUTPATIEN 1 1 ROSARIO HIRSCH T VISIT PSC 15 MINUTES EMERGENCY 33578 DEAN HART DEPT 1 1 EMERGENCY VISIT SERVICES HIGH SEVERITY& THREAT [facility] - 1 1 [facility] OUTPATIEN INC T EMERGENCY 94433 [facility] 1 1 [facility] DEPARTMEN INC T VISIT HIGH/URGE NT SEVERITY OFFICE 37874 A Navi PONCE A OUTPATIEN 1 1 ROSARIO HIRSCH T VISIT PSC 15 MINUTES EMERGENCY 07593 [facility] 1 1 [facility] DEPARTMEN INC T VISIT LOW/MODER SEVERITY HOSPITAL [facility] - 1 1 [facility] OUTPATIEN INC T EMERGENCY 86834 DEAN LEON 1 1 EMERGENCY III [facility] T VISIT HIGH/URGE NT SEVERITY OFFICE 84839 A Navi Rincon OUTPATIEN 1 1 ROSARIO HIRSCH T VISIT PSC 15 MINUTES OFFICE 95548 MORIS SUBRAMANIAN OUTPATIEN 1 1 MAIN QUACH T NEW 45 MINUTES OFFICE 61536 A Navi PONCE A OUTPATIEN 1 1 ROSARIO HIRSCH T VISIT PSC 15 MINUTES OFFICE 60439 A Navi PONCE A OUTPATIEN 0 0 ROSARIO HIRSCH T VISIT PSC 15 MINUTES HOSPITAL [facility] - 0 0 [facility] OUTPATIEN INC T OFFICE 24582 A Navi PONCE A OUTPATIEN 0 0 ROSARIO HIRSCH T NEW 30 PSC MINUTES
--- OUTSIDE RECORDS SUMMARY | 2017-08-29 22:29 | External Medical Summary Rpt | CCD ---
Demographics Preferred Language Macedonian Marital Status Unknown Restorationist Affiliation Unknown Race Unknown Ethnic Group Unknown Author Author , OBINNA YEBOAH Address Unknown Phone Immunization No patient found.
--- OUTSIDE RECORDS SUMMARY | 2017-08-29 22:29 | External Medical Summary Rpt | CCD ---
Demographics Preferred Language Turkish Marital Status Unknown Sikh Affiliation Unknown Race Unknown Ethnic Group Unknown Author Author , OBINNA YEBOAH Address Unknown Phone Immunization No patient found.
--- OUTSIDE RECORDS SUMMARY | 2017-08-29 22:29 | External Medical Summary Rpt ---
Author Author OBINNA Perez, OBINNA Perez Organization [employer] Address Unknown Phone Unavailable
== END 2017-08-28 21:50 | disposition left against medical advice (07) ==
LOC: ER 20:18
DX: S09.90XA Unspecified injury of head, initial encounter (principal); I10 Essential (primary) hypertension; F17.210 Nicotine dependence, cigarettes, uncomplicated; W01.190A Fall on same level from slipping, tripping and stumbling with subsequent striking against furniture, initial encounter; Y92.019 Unspecified place in single-family (private) house as the place of occurrence of the external cause